=== PATIENT | female | born 1950 | race Caucasian/White ===

== ENCOUNTER 2019-03-20 14:57 | Outpatient (CLI) | payer MEDICARE, OTHER, SELFPAY ==
--- NOTE | 2019-03-20 15:40 | MM_ITS ---
WS: [id number] BILATERAL DIGITAL SCREENING MAMMOGRAPHY WITH CAD CLINICAL INFORMATION: SCREEN HISTORY: Screening mammogram. No current complaints. COMPARISON: None. TECHNIQUE: Bilateral CC and MLO views. FINDINGS: Scattered fibroglandular densities bilaterally. No suspicious focal mass, asymmetry, calcifications, or architectural distortion. No evidence of malignancy. MM/[id number] IMPRESSION: BI-RADS: 2-Benign FOLLOW UP: 1 Year Follow-up Recommend return to annual screening mammography.
== END 2019-03-20 14:58 | disposition home or self-care (01) ==
PROVIDERS: Family Provider Family Medicine; PCP Family Medicine; Visit Provider Family Medicine
DX: Z12.31 Encounter for screening mammogram for malignant neoplasm of breast (principal)
CPT/HCPCS: 77067

== ENCOUNTER 2019-04-04 07:01 | Day surgery (SDC) | payer MEDICARE, OTHER, SELFPAY ==
[2019-04-03 13:23] VITALS: BMI 25.5
--- NOTE | 2019-04-04 07:28 | P.ANES_ITS ---
Pre-Anesthetic Assessment Pre-Anesthetic Assessment: Height/Weight: Height 1.52 m Weight 59.421 kg Preop Diagnosis: nausea/vomiting Proposed Procedure: Operation Date: 04/04/19 08:30 Proposed Procedures p EGD 20224 K21.9(Not Applicable) - Erasmo Cast MD Familial anesthetic complications: PONV Was Beta Dagmar taken within 24 hours: N/A Last intake: NPO > 8 hrs Social: Social History: No alcohol and No tobacco Exam: Pre-Anes Outpt Exam: alert, oriented x 3, clear to auscultation bilaterally and regular rate & rhythm Airway: Cervical ROM: WNL MP: 2 Dentition: Caps Pulmonary: Pulmonary: None reported CV/HEM: CV/HEM: HTN : : None reported Hepatic: Hepatic: None reported GI: GI: None reported Metabolic: Metabolic: DM Musc/skel: Musc/skel: None reported Neuropsych: Neuropsych: None reported Anesthetic Plan: ASA status: II Anesthesia: MAC PFSH Anesthesia PFSH: Social History Smoking and tobacco status: never smoked Second hand smoke exposure: No Alcohol intake: never Adopted: No Caregiver/support person: Yes Lives independently: Yes Household members: spouse Housing: House Marital status: Highest education level completed: High School Graduate service: No Current occupational status: retired Current occupational exposures/hazards: No Pets and animals: No History of recent travel: No Sexually active: No Current gender identity: Female Graciela/Latter-Day: None Special graciela needs: No Agree to transfusion: No Financial difficulty paying for basics: Decline to Answer Data Anesthesia Cardiac Studies: No Data to Display
[2019-04-04 07:56] VITALS: BP 162/81; PULSE 71; RESP 18; TEMP 36.3; O2SAT 97
[2019-04-04] MEDS: sodium chloride 0.9% 1,000 ML 30 ML (08:00)
[2019-04-04 08:04] LABS: Glucose Point of Care 146 mg/dL (70-110)
--- NOTE | 2019-04-04 08:20 | PM.HPUD ---
H&P update H&P Update: DATE OF SURGERY/PROCEDURE: 04/04/19 DATE H&P PERFORMED: 03/26/19 H&P UPDATE INFORMATION: H&P completed within last 30 days and No changes to prior documentation PREOP DIAGNOSIS: Difficulty in swallow and epigastric discomfort PLANNED PROCEDURE: Operation Date: 04/04/19 08:30 Proposed Procedures p EGD 61919 K21.9(Not Applicable) - Erasmo Cast MD Full H&P Perinent History: Family History: Family History (Updated 03/26/19 @ 09:02 by Jayla Griggs RN) Mother Cancer Father Cancer Family/Other Cancer colon Denies family history of Anesthesia complication Bleeding disorder Social History: Social History Smoking and tobacco status: never smoked Second hand smoke exposure: No Alcohol intake: never Adopted: No Caregiver/support person: Yes Lives independently: Yes Household members: spouse Housing: House Marital status: Highest education level completed: High School Graduate service: No Current occupational status: retired Current occupational exposures/hazards: No Pets and animals: No History of recent travel: No Sexually active: No Current gender identity: Female Graciela/Jew: None Special graciela needs: No Agree to transfusion: No Financial difficulty paying for basics: Decline to Answer
[2019-04-04 08:33] VITALS: BP 116/62; PULSE 71; RESP 16; TEMP 36.4; O2SAT 95
[2019-04-04 08:47] VITALS: BP 122/66; PULSE 80; RESP 16; O2SAT 100
[2019-04-04 09:00] VITALS: BP 143/74; PULSE 73; RESP 16; O2SAT 97
[2019-04-05 05:54] LABS: H. Pylori / CLO Test Negative
== END 2019-04-04 09:05 | disposition home or self-care (01) ==
PROVIDERS: Family Provider Family Medicine; PCP Family Medicine; Visit Provider Surgery
PROC: 0DJ08ZZ Inspection of Upper Intestinal Tract, Via Natural or Artificial Opening Endoscopic (ICD-10-PCS; CPT 43235; principal; 2019-04-04 08:30)
DX: R13.10 Dysphagia, unspecified (principal); R10.13 Epigastric pain; K44.9 Diaphragmatic hernia without obstruction or gangrene; K29.70 Gastritis, unspecified, without bleeding; I10 Essential (primary) hypertension; E11.9 Type 2 diabetes mellitus without complications; Z79.84 Long term (current) use of oral hypoglycemic drugs; K21.9 Gastro-esophageal reflux disease without esophagitis
CPT/HCPCS: 12345; 36416; 43239; 82962; 87077; 96365; J2704; J7030

== ENCOUNTER 2019-04-18 06:55 | Outpatient (CLI) | payer MEDICARE, OTHER, SELFPAY ==
--- NOTE | 2019-04-18 07:15 | US_ITS ---
WS: [id number] RIGHT UPPER QUADRANT ULTRASOUND HISTORY: ABDOMINAL PAIN COMPARISON: None available. Liver: 15.1 cm in length. Very mild heterogeneity within the liver parenchyma. No mass or bile duct d ilatation. Gallbladder: There is a small polyp in the fundus of the gallbladder measuring 3.7 mm. No increased v ascularity. Partial septation and fold in the gallbladder. No stones. CBD: 5.3 mm Pancreas: Normal size and echogenicity. Right kidney: 8.9 cm in length. Normal echogenicity with no mass or hydronephrosis. Aorta and IVC: Unremarkable. No ascites. US/US gall bladder [id number] IMPRESSION: 1. Small benign-appearing gallbladder polyp measures 3.7 mm. 2. No cholelithiasis. 3. Mild hepatic steatosis.
== END 2019-04-18 06:56 | disposition home or self-care (01) ==
LOC: US 06:58
PROVIDERS: Family Provider Family Medicine; PCP Family Medicine; Visit Provider Surgery
DX: R10.9 Unspecified abdominal pain (principal); K76.0 Fatty (change of) liver, not elsewhere classified; K82.4 Cholesterolosis of gallbladder
CPT/HCPCS: 76705

== ENCOUNTER → 2019-11-26 09:23 | Outpatient (BNVA) | payer MEDICARE, OTHER, SELFPAY | PROVIDERS: Family Provider Family Medicine; PCP Family Medicine; Referring Provider Internal Medicine; Visit Provider Internal Medicine | DX: E11.9 Type 2 diabetes mellitus without complications (principal); E78.01 Familial hypercholesterolemia; I10 Essential (primary) hypertension | CPT/HCPCS: 99204 ==

== ENCOUNTER → 2020-03-03 08:11 | Outpatient (BNVA) | payer MEDICARE, OTHER, SELFPAY | PROVIDERS: Family Provider Family Medicine; PCP Family Medicine; Visit Provider Internal Medicine | DX: E11.9 Type 2 diabetes mellitus without complications (principal); E78.01 Familial hypercholesterolemia; I10 Essential (primary) hypertension | CPT/HCPCS: 99214 ==

== ENCOUNTER 2020-03-24 11:21 | Outpatient (CLI) | payer MEDICARE, SELFPAY ==
[2020-03-24 13:56] LABS: Estmated Average Glucose 134; Hemoglobin A1C 6.3 % (4.0-6.0)
== END 2020-03-24 11:22 | disposition home or self-care (01) ==
PROVIDERS: PCP Family Medicine; Visit Provider Internal Medicine
DX: E11.9 Type 2 diabetes mellitus without complications (principal)
CPT/HCPCS: 36415; 83036

== ENCOUNTER → 2020-04-01 08:28 | Outpatient (BNVA) | payer MEDICARE, SELFPAY | PROVIDERS: PCP Family Medicine; Visit Provider Internal Medicine | DX: E11.9 Type 2 diabetes mellitus without complications (principal); E78.01 Familial hypercholesterolemia; I10 Essential (primary) hypertension | CPT/HCPCS: 99215 ==

== ENCOUNTER 2020-04-11 09:18 | Outpatient (CLI) | payer MEDICARE, SELFPAY ==
--- NOTE | 2020-04-11 09:22 | XR_ITS ---
WS: [id number] SCREENING DEXA SCAN [employer] CLINICAL INFORMATION: post menopausal COMPARISON: None. FINDINGS: The L1-L4 bone mineral density measures 1.162 g/cm2. This corresponds to a T score score of -0.2 and Z score of 1.8. Left femoral neck bone mineral density measures 0.820 g/cm2. This corresponds to a T score of -1.5 an d Z score of 0.2. Right femoral neck bone mineral density measures 0.817 g/cm2. This corresponds to a T score -1.5of an d Z score of 0.2. Mean femoral neck bone mineral density measures 0.818 g/cm2. This corresponds to a T score of -1.5 an d Z score of 0.2. XR/XR DEXA axial skeleton* [id number] IMPRESSION: Normal bone mineralization lumbar spine. Osteopenia in the femoral necks. Patient's FRAX calculated 10 year probability for major osteoporotic fracture i s 13.7 % and osteoporotic hip fracture is 3.3%.
== END 2020-04-11 09:19 | disposition home or self-care (01) ==
LOC: RADWPI 09:18
PROVIDERS: PCP Family Medicine; Visit Provider Internal Medicine
DX: Z78.0 Asymptomatic menopausal state (principal)
CPT/HCPCS: 77080

== ENCOUNTER 2020-04-15 09:05 | Outpatient (CLI) | payer MEDICARE, SELFPAY ==
--- NOTE | 2020-04-15 09:11 | MM_ITS ---
WS: [id number] BILATERAL SCREENING DIGITAL MAMMOGRAM WITH CAD HISTORY: SCREENING COMPARISON: 03/20/2019, 02/17/2018 Bilateral CC and MLO views submitted. Computer aided detection analyzed. Breast composition: There are scattered areas of fibroglandular density. No suspicious masses, microc alcifications or architectural distortion. MM/[place] [id number] IMPRESSION: BI-RADS: 1-Negative FOLLOW UP: 1 Year Follow-up
== END 2020-04-15 09:06 | disposition home or self-care (01) ==
LOC: RADSHAW 09:07
PROVIDERS: PCP Family Medicine; Visit Provider Internal Medicine
DX: Z12.31 Encounter for screening mammogram for malignant neoplasm of breast (principal)
CPT/HCPCS: 77067

== ENCOUNTER 2020-06-24 09:21 | Outpatient (CLI) | payer MEDICARE, SELFPAY ==
[2020-06-24 10:25] LABS: Estmated Average Glucose 134; Hemoglobin A1C 6.3 % (4.0-6.0)
== END 2020-06-24 09:22 | disposition home or self-care (01) ==
PROVIDERS: PCP Family Medicine; Visit Provider Internal Medicine
DX: E11.9 Type 2 diabetes mellitus without complications (principal)
CPT/HCPCS: 83036

== ENCOUNTER → 2020-10-20 08:47 | Outpatient (BNVA) | payer MEDICARE, SELFPAY | PROVIDERS: PCP Family Medicine; Visit Provider Internal Medicine | DX: E11.9 Type 2 diabetes mellitus without complications (principal); E78.01 Familial hypercholesterolemia; M85.80 Other specified disorders of bone density and structure, unspecified site | CPT/HCPCS: 99214 ==

== ENCOUNTER → 2021-01-08 08:14 | Outpatient (BNVA) | payer MEDICARE, SELFPAY | PROVIDERS: PCP Family Medicine; Visit Provider Internal Medicine | DX: E11.9 Type 2 diabetes mellitus without complications (principal); E78.01 Familial hypercholesterolemia; M85.80 Other specified disorders of bone density and structure, unspecified site; Z79.84 Long term (current) use of oral hypoglycemic drugs | CPT/HCPCS: 99214 ==

== ENCOUNTER 2021-06-12 07:37 | Outpatient (CLI) | payer MEDICARE, SELFPAY ==
--- NOTE | 2021-06-12 07:50 | MM_ITS ---
WS: [id number] BILATERAL 3D TOMOSYNTHESIS DIGITAL SCREENING MAMMOGRAPHY WITH CAD CLINICAL INFORMATION: SCREENING HISTORY: Screening mammogram. No current complaints. COMPARISON: April 15, 2020 TECHNIQUE: Bilateral CC and MLO views. FINDINGS: Scattered fibroglandular densities bilaterally. A few incidental punctate calcifications. No suspicio us focal mass, asymmetry, calcifications, or architectural distortion. No evidence of malignancy. MM/[place] [id number] IMPRESSION: BI-RADS: 2-Benign FOLLOW UP: 1 Year Follow-up Recommend return to annual screening mammography.
== END 2021-06-12 07:38 | disposition home or self-care (01) ==
LOC: RADSHAW 07:39
PROVIDERS: PCP Family Medicine; Visit Provider Family Medicine
DX: Z12.31 Encounter for screening mammogram for malignant neoplasm of breast (principal)
CPT/HCPCS: 77063; 77067

== ENCOUNTER → 2021-06-29 08:02 | Outpatient (BNVA) | payer MEDICARE, SELFPAY | PROVIDERS: PCP Family Medicine; Visit Provider Internal Medicine | DX: E11.9 Type 2 diabetes mellitus without complications (principal); E78.2 Mixed hyperlipidemia; M85.80 Other specified disorders of bone density and structure, unspecified site; Z79.84 Long term (current) use of oral hypoglycemic drugs | CPT/HCPCS: 99214 ==

== ENCOUNTER → 2021-10-01 08:25 | Outpatient (BNVA) | payer MEDICARE, SELFPAY | PROVIDERS: PCP Family Medicine; Visit Provider Internal Medicine | DX: E11.22 Type 2 diabetes mellitus with diabetic chronic kidney disease (principal); N18.30 Chronic kidney disease, stage 3 unspecified; Z79.84 Long term (current) use of oral hypoglycemic drugs; E78.5 Hyperlipidemia, unspecified; E78.2 Mixed hyperlipidemia; M85.80 Other specified disorders of bone density and structure, unspecified site | CPT/HCPCS: 99214 ==

== ENCOUNTER → 2022-02-25 07:56 | Outpatient (BNVA) | payer MEDICARE, SELFPAY | PROVIDERS: PCP Family Medicine; Visit Provider Internal Medicine | DX: E11.9 Type 2 diabetes mellitus without complications (principal); E78.2 Mixed hyperlipidemia; M85.80 Other specified disorders of bone density and structure, unspecified site; Z79.84 Long term (current) use of oral hypoglycemic drugs | CPT/HCPCS: 99214 ==

== ENCOUNTER 2022-06-15 08:36 | Outpatient (CLI) | payer MEDICARE, SELFPAY ==
--- NOTE | 2022-06-15 08:45 | MM_ITS ---
WS: [id number] BILATERAL 3D TOMOSYNTHESIS DIGITAL SCREENING MAMMOGRAPHY WITH CAD CLINICAL INFORMATION: SCREENING HISTORY: Screening mammogram. No current complaints. COMPARISON: 2021 and 2020 TECHNIQUE: Bilateral CC and MLO views. FINDINGS: Scattered fibroglandular densities bilaterally. A few incidental punctate calcifications. No suspicio us focal mass, asymmetry, calcifications, or architectural distortion. No evidence of malignancy. MM/[place] [id number] IMPRESSION: BI-RADS: 2-Benign FOLLOW UP: 1 Year Follow-up Recommend return to annual screening mammography.
== END 2022-06-15 08:37 | disposition home or self-care (01) ==
LOC: RAD 08:37
PROVIDERS: PCP Family Medicine; Visit Provider Family Medicine
DX: Z12.31 Encounter for screening mammogram for malignant neoplasm of breast (principal)
CPT/HCPCS: 77063; 77067

== ENCOUNTER → 2022-08-26 10:27 | Outpatient (BNVA) | payer MEDICARE, SELFPAY | PROVIDERS: PCP Family Medicine; Visit Provider Internal Medicine | DX: E11.9 Type 2 diabetes mellitus without complications (principal); E78.2 Mixed hyperlipidemia; M85.80 Other specified disorders of bone density and structure, unspecified site; Z79.84 Long term (current) use of oral hypoglycemic drugs | CPT/HCPCS: 99214 ==

== ENCOUNTER 2022-10-20 12:56 | Outpatient (CLI) | payer MEDICARE, SELFPAY ==
--- NOTE | 2022-10-20 13:07 | XR_ITS ---
WS: [id number] SCREENING DEXA SCAN [employer] CLINICAL INFORMATION: OSTEOPOROSIS SCREENING COMPARISON: 04/11/2020 FINDINGS: The L1-L4 bone mineral density measures 1.221 g/cm2. This corresponds to a T score score of 0.3 and Z score of 2.4. Left femoral neck bone mineral density measures 0.807 g/cm2. This corresponds to a T score of -1.6 an d Z score of 0.3. Right femoral neck bone mineral density measures 0.819 g/cm2. This corresponds to a T score -1.5of an d Z score of 0.4. Mean femoral neck bone mineral density measures 0.813 g/cm2. This corresponds to a T score of -1.5 an d Z score of 0.3. IMPRESSION: Normal bone mineralization lumbar spine. Osteopenia femoral necks. Patient's FRAX calculated 10 year probability for major osteoporotic fracture is 24.8% and osteoporot ic hip fracture is 7.5%. Bone mineral density in lumbar spine increased 5.1% and decrease -0.6% in the femoral necks since
== END 2022-10-20 12:57 | disposition home or self-care (01) ==
PROVIDERS: PCP Family Medicine; Visit Provider Family Medicine
DX: M81.0 Age-related osteoporosis without current pathological fracture (principal)
CPT/HCPCS: 77080

== ENCOUNTER → 2023-01-03 07:46 | Outpatient (BNVA) | payer MEDICARE, SELFPAY | PROVIDERS: PCP Family Medicine; Visit Provider Internal Medicine | DX: E11.9 Type 2 diabetes mellitus without complications (principal); E78.2 Mixed hyperlipidemia; M85.80 Other specified disorders of bone density and structure, unspecified site; Z79.84 Long term (current) use of oral hypoglycemic drugs | CPT/HCPCS: 99214 ==

== ENCOUNTER → 2023-04-06 08:00 | Outpatient (BNVA) | payer MEDICARE, SELFPAY | PROVIDERS: PCP Family Medicine; Visit Provider Internal Medicine | DX: E78.2 Mixed hyperlipidemia (principal); E11.9 Type 2 diabetes mellitus without complications; M85.80 Other specified disorders of bone density and structure, unspecified site; Z79.84 Long term (current) use of oral hypoglycemic drugs | CPT/HCPCS: 99214 ==

== ENCOUNTER 2023-06-20 07:38 | Outpatient (CLI) | payer MEDICARE, SELFPAY ==
--- NOTE | 2023-06-20 07:53 | MM_ITS ---
WS: [id number] VIEWS: MLO and CC views both breasts. 3D digital tomosynthesis is also included in this exam. Comparison made with prior exam of 05/17/2011, 05/23/2012, 12/26/2014, 02/17/2018, 03/20/2019, 04/15/2020, 06/12/2021, 06/15/2022.. Findings: There was no sign of mass, architectural distortion or suspicious calcification in either breast. The breasts are almost entirely fatty Impression: MM/[place] [id number] BI-RADS: 1-Negative FOLLOW-UP: 1 Year Follow-up This mammogram was also analyzed by the Computer Aided Detection System R2 Imag e Fiscal Specialist.
== END 2023-06-20 07:39 | disposition home or self-care (01) ==
LOC: RAD 07:39
PROVIDERS: PCP Family Medicine; Visit Provider Family Medicine
DX: Z12.31 Encounter for screening mammogram for malignant neoplasm of breast (principal)
CPT/HCPCS: 77063; 77067

== ENCOUNTER → 2023-10-05 07:52 | Outpatient (BNVA) | payer MEDICARE, SELFPAY | PROVIDERS: PCP Family Medicine; Visit Provider Internal Medicine | DX: E11.9 Type 2 diabetes mellitus without complications (principal); E78.2 Mixed hyperlipidemia; M85.80 Other specified disorders of bone density and structure, unspecified site; Z79.84 Long term (current) use of oral hypoglycemic drugs; Z79.85 Long-term (current) use of injectable non-insulin antidiabetic drugs | CPT/HCPCS: 99214 ==

== ENCOUNTER → 2024-04-04 08:27 | Outpatient (BNVA) | payer MEDICARE, SELFPAY | PROVIDERS: PCP Family Medicine; Visit Provider Internal Medicine | DX: E78.2 Mixed hyperlipidemia (principal); E11.9 Type 2 diabetes mellitus without complications; M85.80 Other specified disorders of bone density and structure, unspecified site | CPT/HCPCS: 99214 ==

== ENCOUNTER 2024-06-19 16:01 | Inpatient (IN) | payer MEDICARE, SELFPAY ==
[2024-06-19] VITALS (29 sets, daily range): BP systolic 153–201; BP diastolic 77–102; PULSE 81–108; RESP 13–31; TEMP 36.6–36.9; O2SAT 84–99; BMI 25.0
--- NOTE | 2024-06-19 16:04 | ECG_ITS ---
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 Measurements Intervals [place] Rate: 113 P: -6 TX: 160 QRS: -36 QRSD: 166 T: 104 QT: 380 QTc: 523 Interpretive Statements SINUS TACHYCARDIA LEFT AXIS DEVIATION [QRS AXIS < -30] LEFT BUNDLE BRANCH BLOCK [120+ ms QRS DURATION, 80+ ms Q/S IN V1/V2, 85+ ms R IN I/aVL/V5/V6] No previous ECG available for comparison Electronically Signed On 06-20-2024 21:31:40 CDT by Gail Machado M.D. [id number]
--- NOTE | 2024-06-19 16:04 | XRR_ITS ---
PROCEDURE INFORMATION: Exam: XR Chest Exam date and time: 06/19/2024 4:14 PM Age: 74 years old Clinical indication: Pain; Chest pressure; Additional info: Cp TECHNIQUE: Imaging protocol: Radiologic exam of the chest. Views: 1 view. COMPARISON: CR XR shoulder LT min 2V* [id number] 07/11/2017 10:21 AM FINDINGS: Lungs: Both lungs demonstrate diffuse pulmonary edema.Fco B lines are noted in both lung bases. No dense consolidation noted. Pleural spaces: Unremarkable. No pleural effusion. No pneumothorax. Heart/Mediastinum: Borderline cardiomegaly noted. Bones/joints: Unremarkable. XR/XR chest 1V portable [id number] IMPRESSION: Mild CHF
--- NOTE | 2024-06-19 16:12 | XACV_ITS ---
Exam Room: [facility] Ht: 152 cm Wt: 58 kg BSA: 1.58 m2 Gender: Female : 1950 Exam Priority: Routine Procedure(s): Procedure Description: Diagnostic procedure Procedure Description: PCI procedure Procedure Description: Coronary IVUS Procedure Description: Drug Eluting Coronary Stent Procedure Description: PTCA Procedure Description: Miscellaneous Procedure Description: ACT Procedure Description: Coronary Angiography Diagnostic Cath Status: Emergency Diagnostic Findings * INDICATION: Patient has presented with chest pain, new onset left bundle branch block and heart failure symptoms. * Left Main has no significant disease. * Circumflex has no significant disease. * Right Coronary Artery has mild luminal irregularities. * Proximal Left Anterior Descending: significant 80% stenosis, MERCEDEZ: 3 flow. Distal LAD has 40-50% stenosis. * 1st Diagonal: moderate 60-70% stenosis, MERCEDEZ: 3 flow. * Coronary angiography shows right dominance. PCI Status: Emergency PCI Indication: NSTE - ACS Interventional Findings * Procedure detail: We engaged left main artery with XB 3.0 guide catheter. IV heparin was administered to maintain anticoagulation. Run-through wire was used to cross the stenosis and was put in distal vessel. IVUS was performed to size the stent. We performed predilation with 3.5 x 12 mm semicompliant balloon. At the same time second run-through wire was kept in the diagonal artery to protect it. This was followed by placement of 3.5 x 18 mm resolute Darrick drug-eluting stent from proximal to mid LAD. We postdilated the stent with 3.75x15 mm NC balloon. Flow to the diagonal artery was lost after post dilation. A pilot submersible wire was advanced into diagonal artery through the stent struts of LAD. This vessel was dilated with 2.0 x 12 mm and 2.5 x 15 mm semicompliant balloons. Flow to diagonal artery was restored. At this time final angiogram was performed showing excellent stent expansion, MERCEDEZ 3 flow and no residual stenosis. Guidewire and guide catheter were removed. Patient left micro lab analyst in a stable condition. . * Proximal Left Anterior Descendin% stenosis treated with a AB TREK 3.50X12 RX BALLOON, MDT R DARRICK 3.5X18 JUDE, and MDT NC EUPHORA RX 3.23R38CU BALLOON. 0% residual stenosis, MERCEDEZ: 3 flow. * 1st Diagonal: 70% stenosis treated with a AB MINI TREK 2.00X12 RX BALLOON, and AB TREK 2.50X15 RX BALLOON. 0% residual stenosis, MERCEDEZ: 3 flow. Conclusions 1. Severe proximal to mid LAD stenosis s/p successful revascularization with 1 stent. Balloon angioplasty was performed for the diagonal artery. 2. Proximal Left Anterior Descending was treated with a Balloon, Drug Eluting Stent, and Balloon. 3. 1st Diagonal was treated with a Balloon, and Balloon. Recommendations * Dual antiplatelet therapy with aspirin and plavix. * High intensity statin therapy. * Outpatient cardiology follow up in 2 weeks. Interventional RX Recommendation: PCI w/o planned CABG Diagnostic RX Recommendation: PCI w/o planned CABG Anticoagulation: Heparin LV EDP: 45 mmHg Pressures Phase:Rest AO : 142 / 71 ( 97 ) @ 5:49:00 PM 143 / 92 ( 115 ) @ 6:22:00 PM 177 / 91 ( 128 ) @ 6:41:00 PM 180 / 92 ( 131 ) @ 6:41:00 PM LV : 182 / 19 / 45 @ 6:40:00 PM 178 / 17 / 44 @ 6:41:00 PM Valves Phase:DefaultPhase AV : 0.0 @ 5:51:44 PM AV Mean Gradient: 0.0 @ 5:51:44 PM Clinical Evaluation EBL: 5mL-10mL Procedural Details Pre-Procedure Time Out. Identified patient by full name and date of as verbalized by the patient/guarantor. Does the consent match the physician's order: N/A Emergent. Accurate & Complete Informed Consent: N/A Emergent. Inpatient/Outpatient History & Physical on Chart: N/A Emergent. If H&P is completed, is and addenduem needed: N/A Emergent; If yes, is the addendum complete: N/A Emergent. Visualize and Verify Site with Patient/Guarantor: N/A. Relevant Radiology Images available: N/A. The risks, benefits, and alternatives of sedation and/or procedure were discussed by physician. The patient agrees to continue. Procedure started. [facility] Clinical Fraility Score: 4: Vulnerable. [employer] Building Indications: ACS <= 24 hours. Chest Pain Symptom Assessment: Typical Angina Symptoms. Correct patient, site and procedure confirmed by cath team. Current diagnosis: STEMI. PERRLA. 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 Lungs clear x 5 lobes. IV Site on Arrival: 20 gauge in the right anticubital. IV Site on Arrival: 18 gauge in the left anticubital. IV Fluids: 0.9% NaCl at KVO. 0 mL infused prior to micro lab analyst. Pre Procedural Pulses: right radial was 3+. Pt arrived on Bipap at 50% 02. Admit Source: Emergency department. right radial was prepped with chloroprep then draped in the usual sterile fashion. right groin was prepped with chloroprep then draped in the usual sterile fashion. Physician notified. Baseline sample Acquired. HR: 82 BPM. Physician arrived. Physician scrubbed in. Immediate Pre-Procedure Time Out. Correct Patient: Yes; Correct Procedure: Yes; Correct Site: Yes; Correct Patient Position: Yes; Correct Supplies: Yes; Dried Flammable Prep: Yes; Blood Products Available: Yes;. Lidocaine 1% infiltrated to the right radial. Arterial access obtained. A 5 cypriot TIG catheter in over wire. Multiple views taken of left coronary artery. Catheter redirected to the RCA. Multiple views taken of right coronary artery. Catheter removed over the exchange wire. 6 cypriot XB 3 guide catheter was inserted over the wire. Add inventory: Co-pilot submersible, endoflator. Runthrough guidewire was advanced through the guide catheter to lesion in the diaganol. Second runthrough guidewire was advanced through the guide catheter to lesion in the prox LAD. Balloon inserted to lesion in the prox LAD. Inflation number : 1 A AB TREK 3.50X12 RX BALLOON was prepped and advanced across the Prox LAD , then inflated to 8 ALEX for 0:13 seconds. Inflation number: 2 The AB TREK 3.50X12 RX BALLOON was reinflated across the Prox LAD, to 8 ALEX for 0:24 seconds. Balloon out. IVUS catheter in over runthrough wire to lesion in prox LAD. IVUS catheter OTW. IVUS run performed of prox LAD. Stent inserted to lesion in the prox LAD. Inflation Number : 3 A NIKITA Mendoza DARRICK 3.5X18 JUDE -Lot Number# [id number] EXP 11-21-2025 was prepped and advanced across the Prox LAD. The stent was deployed at 12 ALEX for 0:17 seconds. Stent balloon out over wire. Runthrough wire in LAD repositioned to diaganol. Unable to advance second runthrough to diagonal. Runthrough wire advanced back down the LAD. IVUS catheter in over runthrough wire seated in LAD. IVUS run performed of prox LAD stent. Diagonal runthrough wire out. IVUS catheter out OTW. Balloon inserted to lesion in the prox LAD. Inflation number : 4 A NIKITA CHERRY EUPHORA RX [id number] BALLOON was prepped and advanced across the Prox LAD , then inflated to 12 ALEX for 0:13 seconds. Balloon out. Runthrough guidewire was advanced through the guide catheter to lesion in the diaganol. Unable to cross lesion in diagonal, guidewire advanced down LAD. Melter Assistant 50 guidewire was advanced through the guide catheter to lesion in the diaganol. Balloon inserted to lesion in the diaganol. Inflation number : 1 A AB MINI TREK 2.00X12 RX BALLOON was prepped and advanced across the 1st Diag , then inflated to 6 ALEX for 0:13 seconds. Inflation number: 2 The AB MINI TREK 2.00X12 RX BALLOON was reinflated across the 1st Diag, to 8 ALEX for 0:09 seconds. Inflation number: 3 The AB MINI TREK 2.00X12 RX BALLOON was reinflated across the 1st Diag, to 6 ALEX for 0:10 seconds. Inflation number: 4 The AB MINI TREK 2.00X12 RX BALLOON was reinflated across the 1st Diag, to 8 ALEX for 0:09 seconds. Inflation number: 5 The AB MINI TREK 2.00X12 RX BALLOON was reinflated across the 1st Diag, to 6 ALEX for 0:07 seconds. Balloon out. Runthrough wire out. ACT drawn. Results 294 seconds. Therapeutic limits - pre-heparin administration 90-150 seconds and monitoring heparin during a vascular procedure >250 seconds. Balloon inserted to lesion in the diaganol. Inflation number : 6 A AB TREK 2.50X15 RX BALLOON was prepped and advanced across the 1st Diag , then inflated to 8 ALEX for 0:10 seconds. Inflation number: 7 The AB TREK 2.50X15 RX BALLOON was reinflated across the 1st Diag, to 8 ALEX for 0:10 seconds. Balloon out. Melter Assistant 50 wire out. Guide catheter out over exchange wire. A 5 cypriot TIG catheter in over wire. EDP Sample taken: LV 182/19,45; HR: 87 BPM; SpO2: 96%. Pullback taken: LV 178/17,44; AO 177/91(128); Mean: 0mmHg, Peak to Peak: 0mmHg, SEP: 7sec/min; HR: 86 BPM; SpO2: 94%. Catheter removed over the exchange wire. LV EDP: 45. Patient's family updated. Physician scrubbed out. Post Procedure: Pulses reassessed and unchanged. PERRLA. 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 No VTE prophylaxis required. Post-op diagnosis: Severe prox LAD stenosis, status post PCI placement of 1 JUDE. High risk Nstemi. PCI Indication: NSTE. Medication's Wasted: Lidocaine 1% = 18 mL. Medication's Wasted: Nitro = 49.8 mg. Medication's Wasted: Other = Versed 1 mg. Medication's Wasted: Heparin = 4000 unit. Total IV fluids: 50 mL. A TR Band was successful obtaining hemostatsis at the Right Radial artery insertion site. Complications: None. Estimated blood loss: 5mL-10mL. Responsiveness - Normal response to verbal stimuli; alert and oriented, PERRLA. A 16Fr judge catheter was inserted without resistance maintaining sterile technique. Bag to gravity with clear urine returning. Airway - Unaffected, no intervention required; spontaneous ventilation. Circulation: W/N/L, pulses unchanged. Nausea/Vomiting: No. Procedure completed. Patient transferred by bed to ICU. Vital chart was stopped. Access Site Site: Right Radial artery Sheath Size: 6 Fr Hemostasis Method: TR Band Hemostasis Success: Successful Procedure Medications Start: 4:44 PM Stop: 4:44 PM Medication: Versed Amount: 1 mg Route: I.V. Start: 4:45 PM Stop: 4:45 PM Medication: Fentanyl Amount: 25 mcg Route: I.V. Start: 4:54 PM Stop: 4:54 PM Medication: Heparin Amount: 2000 units Route: I.V. Start: 4:58 PM Stop: 4:58 PM Medication: Fentanyl Amount: 25 mcg Route: I.V. Start: 5:17 PM Stop: 5:17 PM Medication: Versed Amount: 1 mg Route: I.V. Start: 5:17 PM Stop: 5:17 PM Medication: Fentanyl Amount: 25 mcg Route: I.V. Start: 5:28 PM Stop: 5:28 PM Medication: Fentanyl Amount: 25 mcg Route: I.V. Start: 5:29 PM Stop: 5:29 PM Medication: Versed Amount: 1 mg Route: I.V. I, the attending physician, have reviewed and verified all procedure medications. Yes, all medications given per verbal order History/Risk Factors Hypertension: No Dyslipidemia: No Peripheral Arterial Disease (PAD): No Myocardial Infarction (W[place]): No Obesity: No Prior Interventions PCI: No CABG: No Valve Surgery: No Report Signatures Finalized by Remi Abel MD on 07/02/2024 09:25 AM
--- NOTE | 2024-06-19 16:14 | W.ED.CHESTPA ---
HPI - Chest Pain General: Chief Complaint: Chest Pain Stated Complaint: STEMI Time Seen by Provider: 06/19/24 16:04 Source: patient and EMS Mode of arrival: EMS Limitations: no limitations History of Present Illness: 74-year-old female who is brought in by EMS as a STEMI alert states started having chest pain last night states it is a pressure type pain that radiated to her left arm is been having shortness of breath as well she went to [facility] and then called EMS from there. States the pain originally was a 9 out of 10 pressure pain it has been improved with nitro is now a 2 out of 10 states she feels like her lungs are filling up and making her short of breath as well she does have a history of high cholesterol diabetes and hypertension denies any history of heart disease is a non-smoker. Associated symptoms: Reports dyspnea; Deny abdominal pain, fever(s), nausea or vomiting Related Data Home Medications ?Medication ?Instructions ?Recorded ?Confirmed cholecalciferol (vitamin D3) 10 10 mcg PO DAILY 10/20/20 06/19/24 mcg (400 unit) capsule metformin 500 mg tablet 500 mg PO BID 01/05/24 06/19/24 fenofibrate nanocrystallized 145 145 mg PO DAILY 06/19/24 06/19/24 mg tablet fluoxetine 20 mg capsule 20 mg PO DAILY 06/19/24 06/19/24 fluticasone propionate 50 2 spray intranasal DAILY 06/19/24 06/19/24 mcg/actuation nasal spray,suspension lisinopril 40 mg tablet 40 mg PO QPM 06/19/24 06/19/24 nifedipine 60 mg tablet,extended 120 mg PO DAILY 06/19/24 06/19/24 release 24 hr Previous Rx's ?Medication ?Instructions ?Recorded pantoprazole 40 mg tablet,delayed See Rx Instructions .Route 01/31/20 release .COMPLEX #30 tabs blood glucose control, low (True #1 ea 03/12/20 Metrix Level 1 solution) blood-glucose meter (True Metrix #1 ea 03/12/20 Glucose Meter) blood sugar diagnostic (True #400 strips 09/27/22 Metrix Glucose Test Strip) lancets 28 gauge (TRUEplus Lancets) #400 ea 09/27/22 glimepiride 1 mg tablet See Rx Instructions .Route 12/18/23 .COMPLEX #90 tabs evolocumab 140 mg/mL subcutaneous See Rx Instructions .Route 04/04/24 pen injector (Repatha SureClick) .COMPLEX #6 mL liraglutide 0.6 mg/0.1 mL (18 mg/3 See Rx Instructions .Route 04/04/24 mL) subcutaneous pen injector .COMPLEX #6 mL (Victoza 3-Jared) Allergies Allergy/AdvReac Type Severity Reaction Status Date / Time No Known Allergies Allergy Verified 04/03/24 15:01 Review of Systems Const: Denies: fever(s), chills, body aches or change in appetite ENMT: Denies: throat pain or dental pain Card: Reports: chest pain Resp: Reports: dyspnea GI: Denies: abdominal pain, nausea, vomiting or diarrhea Musc: Denies: neck pain or back pain Skin/Breast: Denies: rash Neuro: Denies: headache(s) PFSH ED PFSH: Medical History Diarrhea Diabetes Hypertension Surgical History History of tonsillectomy History of back surgery History of colonoscopy (~2016) normal results History of esophagogastroduodenoscopy (EGD) (~04/2019) Nausea and vomiting in adult EGD showed gastritis and that will be treated by PPI therapy and diet modifications, pending ultrasound of the gallbladder. Family History Mother Cancer Father Cancer Family/Other Cancer colon Denies family history of Anesthesia complication Bleeding disorder Social History Smoking and tobacco/nicotine status: never used tobacco/nicotine Second hand smoke exposure: No Alcohol intake: never Substance/Drug Use: never Adopted: No Caregiver/support person: Yes Lives independently: Yes Household members: spouse Housing: House Marital status: Highest education level completed: High School Graduate service: No Current occupational status: retired Current occupational exposures/hazards: No Pets and animals: No Sexually active: No Do you think of yourself as: Straight/Heterosexual Current gender identity: Female Graciela/Episcopal: None Special graciela needs: No Agree to transfusion: No Physical Exam Const: COMMON NORMALS: no acute distress, patient oriented x3 and healthy appearing HENMT: COMMON NORMALS: normocephalic and atraumatic HEAD & SCALP: normocephalic and atraumatic Eye: COMMON NORMALS: conjunctivae normal CONJUNCTIVA: Yes conjunctivae normal Neck/C-Spine: COMMON NORMALS: full ROM and supple Chest: COMMONS NORMALS: normal inspection of the chest Resp: COMMON NORMALS: No retractions and No use of accessory muscles AUSCULTATION: rales Cardio: COMMON NORMALS: regular rhythm and No murmurs present (Cardio) RATE: tachycardic RHYTHM: regular rhythm GI: COMMON NORMALS: Normal to inspection, nondistended, normoactive bowel sounds present, Soft to palpation, non-tender and no masses PALPATION: Yes Soft to palpation Extremity: COMMON NORMALS: normal to inspection and full ROM Neuro: COMMON NORMALS: patient oriented x3, moves all extremities and no focal motor deficits Psych: COMMON NORMALS: mental status grossly normal, Normal thought process present and cooperative THOUGHT PROCESS: Normal thought process present Skin: COMMON NORMALS: no rashes or lesions noted and no wounds GENERAL SKIN EXAM: no rashes or lesions noted Course Vital Signs: Vital signs: Vital Signs Temperature 97.8 F 06/19/24 16:04 Pulse Rate 108 H 06/19/24 16:04 Respiratory Rate 24 H 06/19/24 16:04 Blood Pressure 201/102 06/19/24 16:04 Pulse Oximetry 84 L 06/19/24 16:04 Oxygen Delivery Me thod Room Air 06/19/24 16:04 MDM - Chest Pain Medical Decision Making Patient presents here chest pain has new onset left bundle branch also has pulm edema on her chest x-ray patient was seen by cardiology in the ER will take to the [facility] for possible STEMI Medical Records I reviewed the patient's medical records. Lab Data I reviewed the patient's lab results. 06/19/24 16:10 06/19/24 16:10 Laboratory Results PT 12.60 SECONDS (12.1-14.9) 06/19/24 16:10 INR 0.88 (0.8-1.2) 06/19/24 16:10 All radiology interpretation(s) finalized by discharge EKG Data EKG 1: I personally reviewed and interpreted this EKG as follows: EKG interpretation date: 06/19/24 EKG interpretation time: 16:00 Interpretation: sinus tach hr 113 lbbb qrs [id number] Discharge Plan Discharge Patient Disposition: Admitted As Inpatient Admit Provider: Remi Abel Clinical Impression: ST elevation myocardial infarction (STEMI), Pulmonary edema Condition: Stable Coding Level of Care Code ED Research Mechanic for Eleanor Metz
[2024-06-19] MEDS: clopidogrel 300 mg Tablet 600 MG PO (16:17)
[2024-06-19 16:18] LABS: Basophils # 0.1 10^3/uL (0.0-0.1); Basophils % 0.8 %; Eosinophils # 0.3 10^3/uL (0.0-0.8); Eosinophils % 1.7 %; Hematocrit 34.4 % (36-47); Lymphocytes % 44.2 %; Mean Corpuscular HGB Conc 30.5 g/dL (30-55); Mean Corpuscular Hemoglobin 25.8 pg (27-33); Mean Corpuscular Volume 84.5 fl (85-98); Mean Platelet Volume 13.2 fL (7.4-10.4); Monocytes # 0.8 10^3/uL (0.2-0.9); Monocytes % 5.3 %; Neutrophils # 7.55 10^3/uL (1.8-7.7); Neutrophils % 47.5 %; Nucleated Red Blood Cells % 0 %; Platelet Count 410 10^3/cmm (157-399); Red Blood Count 4.07 10^6/uL (3.85-5.65); Red Cell Distribution Width 14.5 % (12.1-15.1); White Blood Count 15.88 10^3/uL (3.29-11.43)
[2024-06-19] MEDS: labetalol 5 mg/mL SDV 20mL 10 MG IVP (16:18)
[2024-06-19] MEDS: heparin 5,000 unit/mL INJ 1 mL 4000 UNIT IVP (16:22)
[2024-06-19 16:30] LABS: INR 0.88 (0.8-1.2)
[2024-06-19] MEDS: FUROsemide 10 mg/mL SDV 10mL 60 MG IVP (16:34)
--- NOTE | 2024-06-19 16:39 | P.HP_ITS ---
<Statement entered by Remi Abel M.D - 06/20/24 22:44> Patient was evaluated and cared for in conjunction with an advanced practice practitioner. I personally examined the patient and reviewed the chart and all pertinent data including imaging, telemetry, and laboratory results. I discussed the patient in detail with the advanced practice practitioner. Please see their note for complete H&P, results and agreed upon plan of care for the patient. Patient has presented with chest pain, new onset left bundle branch block and heart failure symptoms. GENERAL: Patient is alert and oriented HEART: Regular S1 and S2 LUNGS: Has crackles bilaterally EXTREMITIES: Lower extremities with no edema 1) Acute coronary syndrome 2) Acute congestive heart failure 3) New onset left bundle branch block 4) Diabetes Patient has presented with unstable angina/high risk NSTEMI features with acute heart failure. We will proceed with emergent cardiac catheterization with possible PCI. Risks and benefits of the procedure discussed in detail. IV lasix given. Starting on BiPAP Loaded with plavix and aspirin Order echocardiogram We will consult medicine team to help with management of medical issues Providers/Chief Complaint 2 Admitting Physician: Dr. Abel Primary Care Provider: Salvador Foreman MD Chief Complaint: STEMI History of Present Illness Mariela Bautista is a 74 year old female who came to the emergency room via EMS as a STEMI alert. She states she started having chest pain last night pressure at the left side of her chest that radiated to her left arm. She had been having shortness of breath on exertion as well. She was in a clinic and EMS was called from there. She states she got nitro and her chest pain improved but she still having some chest pressure. She does have a history of hypercholesterolemia, diabetes, and hypertension. Denies history of heart disease. She is a non-smoker. On exam she is dyspneic with oxygen saturation of 87 percent on nasal cannula. EKG showed new onset left bundle branch block. Blood pressure is fairly elevated at 201/102. Labs are pending at this time. Review of Systems 2 Narrative: Consitutional: denies fever, chills, body aches Card: reports chest pressure at the center of her chest at rest slightly relieved by nitro, reports shortness of breath, reports orthopnea Resp: Reports shortness of breath Musc: Denies extremity pain, denies limited range of motion or recent injury Skin: Denies rash, lesions, or wounds, denies changes to skin color Neuro: Denies nubmness in extremities, h/a, s/s of stroke Medications/Allergies Home Medications ?Medication ?Instructions ?Recorded ?Confirmed ?Last Taken ?Type pantoprazole 40 mg tablet,delayed See Rx Instructions .Route 01/31/20 06/19/24 Unknown Rx release .COMPLEX #30 tabs blood glucose control, low (True #1 ea 03/12/20 Unknown Rx Metrix Level 1 solution) blood-glucose meter (True Metrix #1 ea 03/12/20 Unknown Rx Glucose Meter) cholecalciferol (vitamin D3) 10 10 mcg PO DAILY 06/19/24 Unknown History mcg (400 unit) capsule blood sugar diagnostic (True #400 strips 09/27/2206/05 Unknown Rx Metrix Glucose Test Strip) lancets 28 gauge (TRUEplus Lancets) #400 ea 09/27/22 0 06/19/24 Unknown Rx glimepiride 1 mg tablet See Rx Instructions .Route 1 06/19/24 Unknown Rx .COMPLEX #90 tabs metformin 500 mg tablet 500 mg PO BID 01/05/2406/19 Unknown History evolocumab 140 mg/mL subcutaneous See Rx Instructions .Route 04/04/24 06/19/24 Unknown Rx pen injector (Padma Mistryick) .COMPLEX #6 mL liraglutide 0.6 mg/0.1 mL (18 mg/3 See Rx Instructions .Route 04/04/24 06/19/24 Unknown Rx mL) subcutaneous pen injector .COMPLEX #6 mL (Victoza 3-Jared) fenofibrate nanocrystallized 145 145 mg PO DAILY 06/1906/19/24 Unknown History mg tablet fluoxetine 20 mg capsule 20 mg PO DAILY 06/19/2406/05 Unknown History fluticasone propionate 50 2 spray intranasal DAILY 06/19/24 Unknown History mcg/actuation nasal spray,suspension lisinopril 40 mg tablet 40 mg PO QPM 06/19/24 Unknown History nifedipine 60 mg tablet,extended 120 mg PO DAILY 06/1906/19/24 Unknown History release 24 hr Allergies Allergy/AdvReac Type Severity Reaction Status Date / Time No Known Allergies Allergy Verified 04/03/24 15:01 PFSH Acute 2 PFSH: Medical History Diarrhea Diabetes Hypertension Surgical History History of tonsillectomy History of back surgery History of colonoscopy (~2016) normal results History of esophagogastroduodenoscopy (EGD) (~04/2019) Nausea and vomiting in adult EGD showed gastritis and that will be treated by PPI therapy and diet modifications, pending ultrasound of the gallbladder. Family History Mother Cancer Father Cancer Family/Other Cancer colon Denies family history of Anesthesia complication Bleeding disorder Social History Smoking and tobacco/nicotine status: never used tobacco/nicotine Second hand smoke exposure: No Alcohol intake: never Substance/Drug Use: never Adopted: No Caregiver/support person: Yes Lives independently: Yes Household members: spouse Housing: House Marital status: Highest education level completed: High School Graduate service: No Current occupational status: retired Current occupational exposures/hazards: No Pets and animals: No Sexually active: No Do you think of yourself as: Straight/Heterosexual Current gender identity: Female Graciela/Episcopal: None Special graciela needs: No Agree to transfusion: No Vitals/I&O/Wt Last Vital Signs Temp 97.8 F 06/19/24 16:04 Pulse 108 H 06/19/24 16:04 Resp 24 H 06/19/24 16:04 BP 201/102 06/19/24 16:04 Pulse Ox 84 L 06/19/24 16:04 O2 Del Method Room Air 06/19/24 16:04 Weight last 48 hrs Weight 128 lb Physical Exam 2 Narrative: General: Slight respiratory distress noted, slightly dyspnic Muskuloskeletal: Full ROM Respiratory: bilateral lower lobes course crackles Cardio: No JVD, tachycardic, regular rhythm, S1 S2 normal, no murmurs, peripheral pulses 2+ radial palpated on the right GI: Normal to inspection, nondistended Extremities: Full ROM, normal, normal capillary refill, no cyanosis, trace edema bilaterally Neuro: Alert and oriented x4, no focal motor deficits Psych: Affect normal Skin: No rashes or lesions noted, no wounds Data 06/20/24 02:22 06/20/24 16:54 A&P Assessment and plan (1) Chest pain: (2) New onset left bundle branch block (LBBB): (3) Congestive heart failure: (4) Hypertension: Qualifiers: Hypertension type: essential hypertension Qualified Code(s): I10 - Essential (primary) hypertension (5) Hyperlipidemia: Qualifiers: Hyperlipidemia type: mixed hyperlipidemia Qualified Code(s): E78.2 - Mixed hyperlipidemia (6) Diabetes type 2, controlled: Qualifiers: Diabetes mellitus complication status: without complication Diabetes mellitus prison insulin use: without oil heaterman use Qualified Code(s): E11.9 - Type 2 diabetes mellitus without complications Plan Patient has s/s of congestive heart failure and new onset left bundle branch block with unstable angina consistent with acute coronary syndrome. She will be placed on bipap and given lasix for diuresis. Echo will be ordered. Nitro drip was recommended for hypertension as well as chest pain. She will be taken to the [facility] emergently at this time for possible PCI. The risk and benefits were discussed in detail with the patient by Dr. Abel. The risk of bleeding, hematoma, vascular injury, myocardial infarction, myocardial perforation, malignant cardiac arrhythmias ,CVA, renal failure and other concomitant complications were explained in detail. Thank you, for allowing us to care for this very pleasant 74 year old female patient. PDMP PDMP Reviewed: Not Reviewed Attestations 2 Medical Necessity Statement*: Stay expected to cross 2 midnights due to above defined care. Coding Level of Care Code Acute Code for [facility] Fwd Diagnoses Chest pain R07.9 New onset left bundle branch block (LBBB) I44.7 Congestive heart failure I50.9 Essential hypertension I10 Hypertension type: essential hypertension Mixed hyperlipidemia E78.2 Hyperlipidemia type: mixed hyperlipidemia Controlled type 2 diabetes mellitus without complication, without long-term current use of insulin E11.9 Diabetes mellitus complication status: without complication Diabetes mellitus prison insulin use: without oil heaterman use
--- NOTE | 2024-06-19 16:43 | P.HPUD_ITS ---
Surgery/Procedure H&P Update DATE OF PROCEDURE: June 19, 2024 DATE H&P PERFORMED: 06/19/24 H&P UPDATE INFORMATION: I have reviewed H&P completed within last 30 days, I have examined patient prior to procedure and No changes to prior documentation PREOP DIAGNOSIS: Acute coronary syndrome/ New onset left bundle branch block PRIMARY INDICATION FOR PROCEDURE: Acute coronary syndrome/ New onset left bundle branch block PLANNED PROCEDURE: Left heart cath with possible percutaneous coronary intervention PATIENT REASSESSED PRIOR TO SEDATION, WITH NO CHANGE NOTED: Yes PHYSICAL EXAM: alert, oriented x 3 and regular rate & rhythm OTHER PERTINENT EXAM FINDINGS: Bilateral crackles AIRWAY EVAL/ANESTHESIA PLAN: normal airway, ASA III, Local Anesthesia, Risks, benefits & alternatives of sedation and/or procedure discussed and Patient agr ees to continue as planned
--- NOTE | 2024-06-19 16:45 | PC.PHAR ---
Pt unable to verify home medications. Reached out to her local and mail order pharmacies for last fill dates and day supply
[2024-06-19 16:51] LABS: Troponin(5th) Baseline 10 ng/L (0-10)
[2024-06-19 17:00] LABS: Alanine Aminotransferase 9 U/L (0-33); Albumin Level 4.5 g/dL (3.5-5.2); Alkaline Phosphatase 60 U/L (35-105); Anion Gap 21.8 (5-19); Aspartate Amino Transferase 14 U/L (0-32); Blood Urea Nitrogen 24 mg/dL (8-23); Calcium 9.7 mg/dL (8.5-10.5); Carbon Dioxide 17 mmol/L (22-29); Chloride 107 mmol/L (98-107); Creatinine Clr Calc Pharmacy 32.3085; Globulin 2.3 g/dL (1.3-4.6); Glucose 207 mg/dL (65-115); NT Pro B Type Natriuretic Pept 5109 pg/mL (0-450); Osmolality Calculated 302 mOsm/kg (285-295); Potassium 4.8 mmol/L (3.5-5.1); Slide Review Slide Review Perform; Sodium 141 mmol/L (136-145); Total Bilirubin 0.2 mg/dL (0.15-1.2); Total Protein 6.8 g/dL (6.6-8.7)
--- NOTE | 2024-06-19 17:52 | PM.PROC ---
Procedure Note: Date of procedure: 06/19/24 Pre-procedure diagnosis: Acute coronary syndrome/ New onset left bundle branch Post-procedure diagnosis: other (Severe proximal to mid LAD stenosis s/p PCI with 1 stent) Procedure: Proximal to mid LAD has severe stenosis s/p successful revascularization with 1 stent. Severely elevated LVEDP. Bipap ICU transfer IV diuretics Dual antiplatelet therapy with aspirin and plavix Performing Provider: Remi Abel Estimated blood loss (mL): 10 Complications: None Condition: critical Disposition: ICU Coding Level of Care Code Acute Code for Eleanor Metz
--- NOTE | 2024-06-19 18:04 | ECG_ITS ---
[facility] Test Date: 2024-06-19 Pat Name: Mariela Bautista Department: Room: ICU02 Gender: Female Ink Grinder: : 1950 Requested By: Niurka Sanford Order Number: [id number] Naina MD: Gail Machado M.D. Measurements Intervals [place] Rate: 84 P: 51 [place]: 140 QRS: -51 QRSD: 180 T: 99 QT: 449 QTc: 532 Interpretive Statements SINUS RHYTHM POSSIBLE LEFT ATRIAL ENLARGEMENT [-0.1mV P-WAVE IN V1/V2] LEFT AXIS DEVIATION [QRS AXIS < -30] LEFT BUNDLE BRANCH BLOCK [120+ ms QRS DURATION, 80+ ms Q/S IN V1/V2, 85+ ms R IN I/aVL/V5/V6] Compared to ECG 06/19/2024 16:00:35 Sinus tachycardia no longer present Electronically Signed On 06-20-2024 21:46:47 CDT by Gail Machado M.D. [email or web address]
[2024-06-19] MEDS: nitroglycerin drip 50 MG/250 ML PREMIX IV (18:32)
--- NOTE | 2024-06-19 19:18 | USCV_ITS ---
Mariela Bautista Age: 74 Gender: F : 1950 Exam Date: 06/19/2024 20:22 Ordering Phys: Erich Tucker MD Technologist: Marques Oconnor Exam Location: [facility] – [place] Indication: chf history of HK, HTN, SOB on BIPAP in ICU-2 s/p cardiac catheterization/ stent placement. BP: 161 / 77 HR: 84 Rhythm: Sinus Technical Quality: Adequate MEASUREMENTS (Male / Female) Normal Values 2D ECHO LV Diastolic Diameter PLAX 5.0 cm 4.2 - 5.9 / 3.9 - 5.3 cm IVS Diastolic Thickness 1.0 cm 0.6 - 1.0 / 0.6 - 0.9 cm IVS Systolic Thickness 1.4 cm LVPW Diastolic Thickness 1.1 cm 0.6 - 1.0 / 0.6 - 0.9 cm LVPW Systolic Thickness 1.3 cm LVOT Diameter 1.7 cm LV Ejection Fraction 2D Teich 34.9 % LV Ejection Fraction MOD 4C 33.5 % LV Ejection Fraction MOD 2C 13.7 % LV Ejection Fraction 2C AL 13.1 % LA Diameter 3.8 cm Aorta at Sinotubular Diameter 2.0 cm IVC Diameter 1.7 cm M-MODE LA Ao Ratio MM 1.5 AV Cusp Separation MM 1.4 cm DOPPLER AV Peak Velocity 114.0 cm/s LVOT Peak Velocity 64.0 cm/s AV Area Cont Eq vti 1.3 cm squared AV Area Cont Eq pk 1.3 cm squared MV Peak Velocity 145.0 cm/s MV Area PHT 12.6 cm squared Mitral E to A Ratio 0.8 TR Peak Velocity 283.0 cm/s TR Peak Gradient 32.0 mmHg TV Peak E Velocity 36.0 cm/s PV Peak Velocity 95.0 cm/s FINDINGS Left Ventricle Severe diffuse hypokinesia of the left ventricle. LV ejection fraction around 25%. (visual). Mildly dilated LV cavity. Right Ventricle Normal right ventricular size and systolic function. Right Atrium The right atrium is normal in size. Left Atrium Mildly increased left atrial size. Mitral Valve Thickened mitral valve. Mild mitral annular calcification. Mild mitral valve regurgitation. Aortic Valve Thickened aortic valve. Trace aortic valve regurgitation. Tricuspid Valve No gross abnormalities no Pulmonic Valve No gross abnormalities noted Pericardium Normal pericardium without effusion. Aorta Normal ascending aorta dimension. IVC Normal inferior vena cava. CONCLUSIONS Severe diffuse hypokinesia of the left ventricle. LV ejection fraction around 25%. (visual). Mildly increased left atrial size. Thickened mitral valve. Mild mitral annular calcification. Mild mitral valve regurgitation. Thickened aortic valve. Trace aortic valve regurgitation. Mildly dilated LV cavity. There is no pericardial effusion. There are no intracardiac masses. No similar previous studies are available for comparison Dr Gail Machaod MD [facility] (Electronically Signed) Final Date: 19 June 2024 22:05 S
--- NOTE | 2024-06-19 19:38 | PM.CONSULT ---
Providers/Reason For Consult Consulting Physician/Specialty*: Cardiology Reason for Consult*: Acute hypoxic respiratory failure Attending Physician: Remi Abel M.D Primary Care Provider: Salvador Foreman MD History of Present Illness History of Present Illness Mariela Bautista is a 74 year old female with past medical history of type 2 diabetes, hypertension, hyperlipidemia, who presents to [facility] for chest pain shortness of breath. Currently patient is on BiPAP, in mild to moderate respiratory distress nasopharynx, intercostal retractions suprasternal retractions, shortness of breath with a few words, on 50% FiO2, but was able to get most of history from her and family at bedside. According patient, she has been having shortness of breath over the last few days, yesterday evening she had chest pain, however she did not seek medical attention, she presented to the emergency room today as she continued to have left-sided chest pain, rating down the left arm with shortness of breath, shortness of breath at rest, no lightheadedness, dizziness, no diaphoresis, no history of smoking, STEMI alert was called from clinic, chest pain improved with nitroglycerin, found to have new onset left bundle branch block, unstable angina, she was given Lasix, placed on BiPAP, taken for coronary angiogram found to have proximal to mid LAD had severe stenosis status post 1 stent, severely elevated LVEDP. She does report a cough, no fevers, no chills, no recent travel, no sick contacts Review of Systems Const: Denies: fever(s) Card: Reports: chest pain Resp: Reports: dyspnea Neuro: Denies: headache(s) Medications/Allergies Home Medications ?Medication ?Instructions ?Recorded ?Confirmed ?Last Taken ?Type pantoprazole 40 mg tablet,delayed See Rx Instructions .Route 01/31/20 06/19/24 Unknown Rx release .COMPLEX #30 tabs blood glucose control, low (True #1 ea 03/12/20 06/19/24 Unknown Rx Metrix Level 1 solution) blood-glucose meter (True Metrix #1 ea 03/12/20 06/19/24 Unknown Rx Glucose Meter) cholecalciferol (vitamin D3) 10 10 mcg PO DAILY 10/20/20 06/19/24 Unknown History mcg (400 unit) capsule blood sugar diagnostic (True #400 strips 09/27/22 06/19/24 Unknown Rx Metrix Glucose Test Strip) lancets 28 gauge (TRUEplus Lancets) #400 ea 09/27/22 06/19/24 Unknown Rx glimepiride 1 mg tablet See Rx Instructions .Route 12/18/23 06/19/24 Unknown Rx .COMPLEX #90 tabs metformin 500 mg tablet 500 mg PO BID 01/05/24 06/19/24 Unknown History evolocumab 140 mg/mL subcutaneous See Rx Instructions .Route 04/04/24 06/19/24 Unknown Rx pen injector (Repatha SureClick) .COMPLEX #6 mL liraglutide 0.6 mg/0.1 mL (18 mg/3 See Rx Instructions .Route 04/04/24 06/19/24 Unknown Rx mL) subcutaneous pen injector .COMPLEX #6 mL (Victoza 3-Jared) fenofibrate nanocrystallized 145 145 mg PO DAILY 06/19/24 06/19/24 Unknown History mg tablet fluoxetine 20 mg capsule 20 mg PO DAILY 06/19/24 06/19/24 Unknown History fluticasone propionate 50 2 spray intranasal DAILY 06/19/24 06/19/24 Unknown History mcg/actuation nasal spray,suspension lisinopril 40 mg tablet 40 mg PO QPM 06/19/24 06/19/24 Unknown History nifedipine 60 mg tablet,extended 120 mg PO DAILY 06/19/24 06/19/24 Unknown History release 24 hr Allergies Allergy/AdvReac Type Severity Reaction Status Date / Time No Known Allergies Allergy Verified 04/03/24 15:01 Current Medications Generic Name Dose Route Start Last Admin Trade Name Freq PRN Reason Stop Dose Admin Nitroglycerin/Dextrose 50 mg in 250 mls @ 0 mls/hr 06/19/24 16:30 06/19/24 19:21 Nitroglycerin Drip IV 20 mcg/min .Q0M JENNIFER 6 mls/hr Titration Protocol Per Protocol PFSH Acute PFSH: Medical History Diarrhea Diabetes Hypertension Surgical History History of tonsillectomy History of back surgery History of colonoscopy (~2016) normal results History of esophagogastroduodenoscopy (EGD) (~04/2019) Nausea and vomiting in adult EGD showed gastritis and that will be treated by PPI therapy and diet modifications, pending ultrasound of the gallbladder. Family History Mother Cancer Father Cancer Family/Other Cancer colon Denies family history of Anesthesia complication Bleeding disorder Social History Smoking and tobacco/nicotine status: never used tobacco/nicotine Second hand smoke exposure: No Alcohol intake: never Substance/Drug Use: never Adopted: No Caregiver/support person: Yes Lives independently: Yes Household members: spouse Housing: House Marital status: Highest education level completed: High School Graduate service: No Current occupational status: retired Current occupational exposures/hazards: No Pets and animals: No Sexually active: No Do you think of yourself as: Straight/Heterosexual Current gender identity: Female Garciela/Mosque: None Special graciela needs: No Agree to transfusion: No Vitals/I&O/Wt Last Vital Signs Temp 98.5 F 06/19/24 18:10 Pulse 83 06/19/24 18:10 Resp 20 H 06/19/24 18:10 BP 161/77 06/19/24 18:10 Pulse Ox 95 06/19/24 18:10 O2 Del Method BiPAP 06/19/24 18:10 FiO2 50 06/19/24 18:10 06/19/24 06/19/24 06/19/24 06:59 14:59 22:59 Intake Total 2.45 / 2.45 Balance 2.45 / 2.45 Weight last 48 hrs Weight 58 kg Weight 58.06 kg Physical Exam Const: COMMON NORMALS: no acute distress and patient oriented x3 Eye: COMMON NORMALS: Equal, round and reactive pupils present and EOMs intact bilaterally PUPIL: Yes Equal, round and reactive pupils present Resp: AUSCULTATION: crackles and wheezes OTHER: On BiPAP, 50%, nasal 40, intercostal retractions, suprasternal retractions, nasal flaring, Cardio: COMMON NORMALS: regular rate, regular rhythm, S1 normal heart sound present and S2 normal heart sound present RATE: regular rate RHYTHM: regular rhythm HEART SOUNDS: S1 normal heart sound present and S2 normal heart sound present GI: COMMON NORMALS: Normal to inspection, nondistended, normoactive bowel sounds present and non-tender Extremity: COMMON NORMALS: no pedal edema Neuro: COMMON NORMALS: patient oriented x3, CN's II-XII intact bilaterally and moves all extremities Psych: COMMON NORMALS: mental status grossly normal Data 06/19/24 16:10 06/19/24 16:10 A&P Assessment and plan (1) New onset left bundle branch block (LBBB): (2) Acute coronary syndrome: (3) ST elevation myocardial infarction (STEMI): (4) Acute hypoxic respiratory failure: (5) Systolic CHF, acute: Plan Acute hypoxic respiratory failure - With evidence of mild to moderate acute respiratory distress, nasal flaring, intercostal retractions suprasternal retractions, short of breath with a few words, on 50% BiPAP - Likely component of systolic CHF exacerbation, ischemic cardiomyopathy - With ACS, new onset left bundle branch block, status post proximal to mid LAD severe stenosis status post revascularization with 1 stent - Plan - Does have a cough, leukocytosis, obtain blood cultures, CRP, Pro-Alcides, lactic acid, will consider antibiotics based on clinical progress - DuoNeb for shortness of breath as needed - Lasix 40 IV twice daily, will consider Lasix drip based on clinical progress - Monitor urine output, monitor creatinine - Continue BiPAP, monitor respiratory status closely - Currently on nitroglycerin drip - Continue aspirin, Plavix, statin -Increased anion gap metabolic acidosis check ketones, - Cardiac echocardiogram ordered - Type 2 diabetes, low-dose sliding scale - Goals of care discussion, with nursing staff and members at bedside had a goals of care discussion, Mariela would like to be a DNR/DNI, confirmed with her multiple times, she voiced understanding, all questions answered - Lovenox for DVT prophylaxis - Protonix for GI prophylaxis PDMP PDMP Reviewed: Not Reviewed Consult Attestations Medical Necessity Statement: Patient requires hospitalization, inpatient, greater than 2 midnights for acute hypoxic respiratory failure, concerns for acute flash pulm edema, STEMI, acute systolic CHF, requiring BiPAP Diagnoses New onset left bundle branch block (LBBB) I44.7 Acute coronary syndrome I24.9 ST elevation myocardial infarction (STEMI) I21.3 Acute hypoxic respiratory failure J96.01 Systolic CHF, acute I50.21
[2024-06-19 20:08] LABS: Lactic Sepsis W/Reflex 1.3 mmol/L (0.5-2.2)
[2024-06-19 20:09] LABS: Procalcitonin 0.05 ng/mL (0-0.5)
[2024-06-19 20:21] LABS: Chol HDL Ratio 3.02 mg/dL (0.0-4.40); Cholesterol 151 mg/dL (0-200); HDL Cholesterol 50 mg/dL (60-100); LDL Cholesterol Calculated 74 mg/dL (50-129); LDL HDL Ratio 1.48 RATIO (0.00-3.22); Triglycerides 133 mg/dL (0-150)
[2024-06-19] MEDS: FUROsemide 10 mg/mL SDV 4mL 40 MG IVP (20:54)
[2024-06-19] MEDS: atorvastatin 40 mg Tablet PO (20:54)
[2024-06-19 21:32] LABS: Estmated Average Glucose 157; Hemoglobin A1C 7.1 % (4.0-6.0)
--- NOTE | 2024-06-19 22:10 | ECG_ITS ---
[facility] [place] [facility] Date: 2024-06-19 Pat Name: Mariela Bautista Department: Room: ICU02 Gender: Female Inhalation Therapist: : 1950 Requested By: Niurka Sanford Order Number: [id number] Naina MD: Gail Machado M.D. Measurements Intervals [place] Rate: 83 P: 27 LA: 160 QRS: -55 QRSD: 174 T: 108 QT: 431 QTc: 509 Interpretive Statements SINUS RHYTHM LEFT AXIS DEVIATION [QRS AXIS < -30] LEFT BUNDLE BRANCH BLOCK [120+ ms QRS DURATION, 80+ ms Q/S IN V1/V2, 85+ ms R IN I/aVL/V5/V6] Compared to ECG 06/19/2024 18:14:58 No significant changes Electronically Signed On 06-20-2024 21:46:29 CDT by Gail Machado M.D. [email or web address]
[2024-06-19 23:26] LABS: Troponin 5 6HR 170.4 ng/L (0-10)
[2024-06-19 23:27] LABS: Troponin 5 6HR Delta 160.4 ng/L (0-12)
[2024-06-20] VITALS (81 sets, daily range): BP systolic 91–159; BP diastolic 48–110; PULSE 72–106; RESP 9–31; TEMP 36.6–36.7; O2SAT 92–99
[2024-06-20 03:47] LABS: Basophils # 0.1 10^3/uL (0.0-0.1); Basophils % 0.7 %; Eosinophils % 0.3 %; Hematocrit 31.4 % (36-47); Lymphocytes # 4.7 10^3/uL (0.8-4.8); Lymphocytes % 32.9 %; Mean Corpuscular HGB Conc 32.2 g/dL (30-55); Mean Corpuscular Hemoglobin 25.6 pg (27-33); Mean Corpuscular Volume 79.7 fl (85-98); Mean Platelet Volume 13.5 fL (7.4-10.4); Monocytes % 6.8 %; Neutrophils # 8.37 10^3/uL (1.8-7.7); Neutrophils % 58.9 %; Nucleated Red Blood Cells % 0 %; Platelet Count 352 10^3/cmm (157-399); Red Blood Count 3.94 10^6/uL (3.85-5.65); Red Cell Distribution Width 14.1 % (12.1-15.1); White Blood Count 14.18 10^3/uL (3.29-11.43)
[2024-06-20 04:11] LABS: Anion Gap 21.5 (5-19); Blood Urea Nitrogen 24 mg/dL (8-23); Calcium 9.5 mg/dL (8.5-10.5); Carbon Dioxide 23 mmol/L (22-29); Chloride 99 mmol/L (98-107); Glucose 159 mg/dL (65-115); Osmolality Calculated 297 mOsm/kg (285-295); Potassium 3.5 mmol/L (3.5-5.1); Sodium 140 mmol/L (136-145)
[2024-06-20 04:21] LABS: Slide Review Slide Review Perform
[2024-06-20 04:31] LABS: NT Pro B Type Natriuretic Pept 18480 pg/mL (0-450)
[2024-06-20 05:41] LABS: Glucose Point of Care 234 mg/dL (70-110)
--- NOTE | 2024-06-20 07:00 | XRR_ITS ---
PROCEDURE INFORMATION: Exam: XR Chest Exam date and time: 06/20/2024 5:31 AM Age: 74 years old Clinical indication: Shortness of breath; Additional info: SOB TECHNIQUE: Imaging protocol: Radiologic exam of the chest. Views: 1 view. COMPARISON: CR XR chest 1V portable [id number] 06/19/2024 4:14 PM FINDINGS: Lungs: Unremarkable. No consolidation. Pleural spaces: Unremarkable. No pleural effusion. No pneumothorax. Heart/Mediastinum: Unremarkable. No cardiomegaly. Bones/joints: Unremarkable. XR/XR chest 1V portable [id number] IMPRESSION: No acute findings.
[2024-06-20 07:31] LABS: Glucose Point of Care 202 mg/dL (70-110)
[2024-06-20] MEDS: FUROsemide 10 mg/mL SDV 4mL 40 MG IVP ×2 (08:16→21:52)
[2024-06-20] MEDS: aspirin 81 mg EC Tablet PO (08:16)
[2024-06-20] MEDS: fluoxetine 20 mg Capsule PO (08:16)
[2024-06-20] MEDS: clopidogrel 75 mg Tablet PO (08:16)
[2024-06-20] MEDS: insulin lispro 100 unit/1 mL SUBCUT ×3 (08:16→17:09)
[2024-06-20] MEDS: fenofibrate 145 mg Tablet PO (08:16)
[2024-06-20 11:22] LABS: Glucose Point of Care 327 mg/dL (70-110)
--- NOTE | 2024-06-20 13:03 | P.PN_ITS ---
<Statement entered by Remi Abel M.D - 06/20/24 23:05> Patient was evaluated and cared for in conjunction with an advanced practice practitioner. I personally examined the patient and reviewed the chart and all pertinent data including imaging, telemetry, and laboratory results. I discussed the patient in detail with the advanced practice practitioner. Please see their note for complete progress note, results and agreed upon plan of care for the patient. GENERAL: Patient is alert and oriented HEART: Regular S1 and S2 LUNGS: Clear to auscultation bilaterally EXTREMITIES: Lower extremities with no edema 1) Acute coronary syndrome 2) Acute congestive heart failure 3) New onset left bundle branch block 4) Diabetes Patient had PCI of proximal LAD performed yesterday. Continue aspirin and plavix Volume status has improved. Continue IV diuresis. Monitor I and Os. Monitor renal function Lifevest ordered. ECHO shows severely reduced LV systolic dysfunction Subjective 2 Subjective: Patient doing well today. She states she can breathe much better. States she has some light chest pressure on the left side of her chest that has improved significantly from yesterday. She states she is able to exert herself without this worsening. She states she feels much better. She has been -4267 L over 24 hours. She received a stent to the LAD yesterday. Creatinine is stable at 1.3. She is currently on the nitro drip. Echo showed EF is 25%. Vitals/I&O/Wt Last Vital Signs Temp 98.1 F 06/20/24 08:30 Pulse 94 06/20/24 11:00 Resp 18 06/20/24 11:00 BP 152/93 06/20/24 11:00 Pulse Ox 97 06/20/24 11:00 O2 Del Method Nasal Cannula 06/20/24 11:00 O2 Flow Rate 2 06/20/24 11:00 FiO2 3 06/20/24 04:45 06/19/24 06/20/24 06/20/24 22:59 06:59 14:59 Intake Total 22.45 / 22.45 360 / 360 Output Total 1150 / 1150 2100 / 3250 1400 / 1400 Balance -1127.55 / -1127.55 -2100 / -3227.55 -1040 / -1040 Weight last 48 hrs Weight 127 lb 13.89 oz Weight 128 lb Physical Exam 2 Narrative: General: Slight respiratory distress noted, slightly dyspnic Muskuloskeletal: Full ROM Respiratory: bilateral lower lobes fine crackles Cardio: No JVD, regular rate, regular rhythm, S1 S2 normal, no murmurs, peripheral pulses 2+ radial palpated on the right GI: Normal to inspection, nondistended Extremities: Full ROM, normal, normal capillary refill, no cyanosis, no edema bilaterally Neuro: Alert and oriented x4, no focal motor deficits Psych: Affect normal Skin: No rashes or lesions noted, no wounds Data 06/20/24 02:22 06/20/24 02:22 Micro: Microbiology 06/19/24 19:43 Blood Culture - Preliminary Blood SPECIMEN COLLECTED 06/19/24 19:40 Blood Culture - Preliminary Blood SPECIMEN COLLECTED A&P Assessment and plan (1) Chest pain: (2) New onset left bundle branch block (LBBB): (3) Congestive heart failure: (4) Hypertension: Qualifiers: Hypertension type: essential hypertension Qualified Code(s): I10 - Essential (primary) hypertension (5) Hyperlipidemia: Qualifiers: Hyperlipidemia type: mixed hyperlipidemia Qualified Code(s): E78.2 - Mixed hyperlipidemia (6) Diabetes type 2, controlled: Qualifiers: Diabetes mellitus fpc insulin use: without fpc use Diabetes mellitus complication status: without complication Qualified Code(s): E11.9 - Type 2 diabetes mellitus without complications Plan Patient is s/p stent to the proximal LAD. She has improved. She will require a few more days of diuresis. I did recommend and discuss life vest with the patient due to her EF being 25%. She agrees with this. This has been ordered. Will go ahead and start beta nilda. Continue to diurese and monitor I & O. Will start Entresto when creatinine stabilizes more. Continue chepe inhibitor. Wean off nitro drip as tolerated. PDMP PDMP Reviewed: Not Reviewed Attestations 2 Medical Necessity Statement*: Patient stay expected to cross two midnights due to above defined care. 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
[2024-06-20] MEDS: insulin regular-human 100 units/1 mL 10 UNIT IVP (13:36)
--- NOTE | 2024-06-20 15:45 | P.PN_ITS ---
Subjective 2 Subjective: Overnight labs and H&P reviewed.Patient states she is symptomatically much better today. Currently on 3 L/min supplemental O2. At baseline does not use any oxygen. Medications: Reviewed: Yes Vitals/I&O/Wt Last Vital Signs Temp 98.1 F 06/20/24 08:30 Pulse 92 06/20/24 15:13 Resp 17 06/20/24 15:13 BP 130/68 06/20/24 15:13 Pulse Ox 96 06/20/24 15:13 O2 Del Method Nasal Cannula 06/20/24 15:13 O2 Flow Rate 2 06/20/24 15:13 FiO2 3 06/20/24 04:45 06/20/24 06/20/24 06/20/24 06:59 14:59 22:59 Intake Total 360 / 360 Output Total 2100 / 3250 1400 / 1400 Balance -2100 / -3227.55 -1040 / -1040 Weight last 48 hrs Weight 58 kg Weight 58.06 kg Physical Exam 2 Narrative: General: No acute distress, AO x3 HEENT: PERRLA, pupils bilaterally equal and reactive, pallors not present Chest: Normal vesicular breath sounds, no added sounds, equal good air entry bilaterally CVS: S1-S2 regular, no murmurs, no tachycardia, no gallops, no rubs Abdomen: Soft, nontender, no organomegaly, bowel sounds present Neuro: No focal deficits, no facial deformity, AO x3, power 5/5 in all limbs Data 06/20/24 02:22 06/20/24 02:22 Micro: Microbiology 06/19/24 19:43 Blood Culture - Preliminary Blood SPECIMEN COLLECTED 06/19/24 19:40 Blood Culture - Preliminary Blood SPECIMEN COLLECTED A&P Assessment and plan (1) New onset left bundle branch block (LBBB): (2) Acute coronary syndrome: (3) ST elevation myocardial infarction (STEMI): (4) Acute hypoxic respiratory failure: (5) Systolic CHF, acute: Plan Acute hypoxic respiratory failure - With evidence of mild to moderate acute respiratory distress, nasal flaring, intercostal retractions suprasternal retractions, short of breath with a few words, on 50% BiPAP - Likely component of systolic CHF exacerbation, ischemic cardiomyopathy - With ACS, new onset left bundle branch block, status post proximal to mid LAD severe stenosis status post revascularization with 1 stent - Plan - Does have a cough, leukocytosis, obtain blood cultures, CRP, Pro-Alcides, lactic acid, will consider antibiotics based on clinical progress - DuoNeb for shortness of breath as needed - Lasix 40 IV twice daily, will consider Lasix drip based on clinical progress - Monitor urine output, monitor creatinine - Continue BiPAP, monitor respiratory status closely - Currently on nitroglycerin drip - Continue aspirin, Plavix, statin -Increased anion gap metabolic acidosis check ketones, - Cardiac echocardiogram ordered - Type 2 diabetes, low-dose sliding scale - Goals of care discussion, with nursing staff and members at bedside had a goals of care discussion, Mariela would like to be a DNR/DNI, confirmed with her multiple times, she voiced understanding, all questions answered - Lovenox for DVT prophylaxis - Protonix for GI prophylaxis June 20, 2024 Patient admitted to the hospital on June 19, 2024 after developing chest pain. EKG showed new onset left bundle branch block. Blood pressure was elevated at 201/102. 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 He is currently having intermittent chest pain for which she is maintained on a nitroglycerin infusion which is being tapered down. Hospitalist service consulted due to acute hypoxic respiratory failure. Patient was requiring BiPAP overnight and until this morning. Likely cause of acute hypoxic respiratory failure is pulmonary edema. Echocardiogram reveals an ejection fraction of 25%. She is currently on diuresis with Lasix 40 mg IV every 12 hours. Urine output nearly 4.6 L. Net -4.2 L. No known history of asthma or COPD. Chest x-ray from yesterday showed diffuse pulmonary edema. No focal consolidation. Patient has mild leukocytosis, no fever negative procalcitonin, unlikely acute infection.No indication of antibiotics at this time. Uncontrolled blood sugar in the 300s, mild anion gap of 21.8. Check HbA1c. She is currently on low-dose insulin sliding scale. Will increase to high-dose sliding scale. Additional 10 units of IV push insulin to be administered now. Patient states she is on Victoza and glimepiride at home, however has been out of Victoza recently due to nonavailability of the medication. PDMP PDMP Reviewed: Not Reviewed Attestations 2 Medical Necessity Statement*: per admitting Coding Level of Care Code Acute Code for [facility] Diagnoses New onset left bundle branch block (LBBB) I44.7 Acute coronary syndrome I24.9 ST elevation myocardial infarction (STEMI) I21.3 Acute hypoxic respiratory failure J96.01 Systolic CHF, acute I50.21
[2024-06-20 16:31] LABS: Glucose Point of Care 182 mg/dL (70-110)
[2024-06-20] MEDS: lisinopril 20 mg Tablet 40 MG PO (17:08)
[2024-06-20] MEDS: carvedilol 6.25 mg Tablet PO (17:09)
[2024-06-20 17:36] LABS: Alanine Aminotransferase 21 U/L (0-33); Albumin Level 4.3 g/dL (3.5-5.2); Alkaline Phosphatase 53 U/L (35-105); Anion Gap 21.7 (5-19); Aspartate Amino Transferase 154 U/L (0-32); Blood Urea Nitrogen 33 mg/dL (8-23); Calcium 9.8 mg/dL (8.5-10.5); Carbon Dioxide 24 mmol/L (22-29); Chloride 98 mmol/L (98-107); Creatinine Clr Calc Pharmacy 25.8345; Globulin 2.9 g/dL (1.3-4.6); Glucose 165 mg/dL (65-115); Osmolality Calculated 301 mOsm/kg (285-295); Potassium 3.7 mmol/L (3.5-5.1); Sodium 140 mmol/L (136-145); Total Bilirubin 0.2 mg/dL (0.15-1.2); Total Protein 7.2 g/dL (6.6-8.7)
[2024-06-20 20:29] LABS: Estmated Average Glucose 154
[2024-06-20] MEDS: atorvastatin 40 mg Tablet PO (21:52)
[2024-06-21] VITALS (23 sets, daily range): BP systolic 91–134; BP diastolic 39–76; PULSE 67–95; RESP 14–20; TEMP 36.6–36.9; O2SAT 88–97
[2024-06-21 04:47] LABS: Basophils # 0.1 10^3/uL (0.0-0.1); Basophils % 0.7 %; Eosinophils # 0.2 10^3/uL (0.0-0.8); Eosinophils % 1.3 %; Lymphocytes # 5.1 10^3/uL (0.8-4.8); Lymphocytes % 45.1 %; Mean Corpuscular HGB Conc 32.3 g/dL (30-55); Mean Corpuscular Hemoglobin 25.9 pg (27-33); Mean Corpuscular Volume 80.3 fl (85-98); Mean Platelet Volume 13.7 fL (7.4-10.4); Monocytes # 0.7 10^3/uL (0.2-0.9); Monocytes % 6.3 %; Neutrophils # 5.18 10^3/uL (1.8-7.7); Neutrophils % 46.2 %; Nucleated Red Blood Cells % 0 %; Platelet Count 328 10^3/cmm (157-399); Red Blood Count 3.86 10^6/uL (3.85-5.65); Red Cell Distribution Width 13.8 % (12.1-15.1); White Blood Count 11.23 10^3/uL (3.29-11.43)
[2024-06-21 05:12] LABS: Anion Gap 22.3 (5-19); Blood Urea Nitrogen 38 mg/dL (8-23); Calcium 9.1 mg/dL (8.5-10.5); Carbon Dioxide 25 mmol/L (22-29); Chloride 99 mmol/L (98-107); Creatinine Clr Calc Pharmacy 20.3957; Glucose 168 mg/dL (65-115); Osmolality Calculated 309 mOsm/kg (285-295); Potassium 3.3 mmol/L (3.5-5.1); Sodium 143 mmol/L (136-145)
[2024-06-21 05:18] LABS: NT Pro B Type Natriuretic Pept 20776 pg/mL (0-450)
[2024-06-21 05:54] LABS: Slide Review Slide Review Perform
[2024-06-21 07:56] LABS: Glucose Point of Care 215 mg/dL (70-110)
[2024-06-21] MEDS: fenofibrate 145 mg Tablet PO (08:27)
[2024-06-21] MEDS: clopidogrel 75 mg Tablet PO (08:27)
[2024-06-21] MEDS: carvedilol 6.25 mg Tablet PO (08:27)
[2024-06-21] MEDS: fluoxetine 20 mg Capsule PO (08:27)
[2024-06-21] MEDS: aspirin 81 mg EC Tablet PO (08:27)
[2024-06-21] MEDS: insulin lispro 100 unit/1 mL SUBCUT ×3 (08:27→17:36)
[2024-06-21] MEDS: FUROsemide 10 mg/mL SDV 4mL 40 MG IVP (08:28)
[2024-06-21] MEDS: potassium chloride ER 20 mEq Tablet 40 MEQ PO (09:23)
--- NOTE | 2024-06-21 10:41 | PC.NURSE ---
Please see paper chart for vitals.
[2024-06-21 11:03] LABS: Glucose Point of Care 378 mg/dL (70-110)
--- NOTE | 2024-06-21 11:16 | P.PN_ITS ---
<Statement entered by Remi Abel M.D - 06/23/24 19:19> Patient was evaluated and cared for in conjunction with an advanced practice practitioner. I personally examined the patient and reviewed the chart and all pertinent data including imaging, telemetry, and laboratory results. I discussed the patient in detail with the advanced practice practitioner. Please see their note for complete progress note, results and agreed upon plan of care for the patient. Patient is doing well. However creatinine trending up. Hold lasix. Monitor renal function. If further increase in creatinine tomorrow, may hydrate her with IV fluids. GENERAL: Patient is alert and oriented HEART: Regular S1 and S2 LUNGS: Clear to auscultation bilaterally EXTREMITIES: Lower extremities with no edema Subjective 2 Subjective: Patient doing well. She is not requiring any oxygen. Blood pressures have been soft. I discussed with patient about the LifeVest and she states she does not want it. She does understand she is at high risk of sudden cardiac . We will hold Lasix for now as she seems euvolemic and her creatinine has had a slight increase at 1.9. Denies any chest pain or shortness of breath. Vitals/I&O/Wt Last Vital Signs Temp 97.8 F 06/21/24 10:52 Pulse 79 06/21/24 10:52 Resp 14 06/21/24 10:52 BP 98/53 06/21/24 10:52 Pulse Ox 91 06/21/24 10:52 O2 Del Method Room Air 06/21/24 10:52 O2 Flow Rate 1 06/21/24 07:44 FiO2 3 06/20/24 04:45 06/20/24 06/21/24 06/21/24 22:59 06:59 14:59 Intake Total 270.6 / 700.5 200 / 200 Output Total 350 / 1750 350 / 2100 Balance -79.4 / -1049.5 -350 / -1399.5 200 / 200 Weight last 48 hrs Weight 127 lb 13.89 oz Weight 128 lb Physical Exam 2 Narrative: General: Slight respiratory distress noted, slightly dyspnic Muskuloskeletal: Full ROM Respiratory: clear throughout Cardio: No JVD, regular rate, regular rhythm, S1 S2 normal, no murmurs, peripheral pulses 2+ radial palpated on the right GI: Normal to inspection, nondistended Extremities: Full ROM, normal, normal capillary refill, no cyanosis, no edema bilaterally Neuro: Alert and oriented x4, no focal motor deficits Psych: Affect normal Skin: right radial puncture site clean, dry, intact, w/o hematoma Data 06/21/24 02:25 06/21/24 02:25 Micro: Microbiology 06/19/24 19:43 Blood Culture - Preliminary Blood NEGATIVE TO DATE 06/19/24 19:40 Blood Culture - Preliminary Blood NEGATIVE TO DATE A&P Assessment and plan (1) Chest pain: (2) New onset left bundle branch block (LBBB): (3) Congestive heart failure: (4) Hypertension: Qualifiers: Hypertension type: essential hypertension Qualified Code(s): I10 - Essential (primary) hypertension (5) Hyperlipidemia: Qualifiers: Hyperlipidemia type: mixed hyperlipidemia Qualified Code(s): E78.2 - Mixed hyperlipidemia (6) Diabetes type 2, controlled: Qualifiers: Diabetes mellitus intermediate card tender insulin use: without intermediate card tender use Diabetes mellitus complication status: without complication Qualified Code(s): E11.9 - Type 2 diabetes mellitus without complications Plan Patient is doing well. Will hold diuretics at this time due to patient had an increase in creatinine at 1.9. Will check BMP in the afternoon. Will decrease Coreg to 3.125 mg twice daily and decrease lisinopril to 20 mg. I have asked the nurse to hold lisinopril if blood pressure less than or equal to 110/60. She does not want the LifeVest at this time. She does understand her risk of sudden cardiac is elevated. PDMP PDMP Reviewed: Not Reviewed Attestations 2 Medical Necessity Statement*: Patient stay expected to cross two midnights due to above defined care. Coding Level of Care Code Acute [facility] Diagnoses Chest pain R07.9 New onset left bundle branch block (LBBB) I44.7 Congestive heart failure I50.9 Essential hypertension I10 Hypertension type: essential hypertension Mixed hyperlipidemia E78.2 Hyperlipidemia type: mixed hyperlipidemia Controlled type 2 diabetes mellitus without complication, without long-term current use of insulin E11.9 Diabetes mellitus intermediate card tender insulin use: without intermediate card tender use Diabetes mellitus complication status: without complication
[2024-06-21 12:22] LABS: Glucose Point of Care 219 mg/dL (70-110)
--- NOTE | 2024-06-21 13:17 | P.PN_ITS ---
Subjective 2 Subjective: Patient's breathing is better. She is currently on room air at the time of this assessment. Medications: Reviewed: Yes Vitals/I&O/Wt Last Vital Signs Temp 97.8 F 06/21/24 10:52 Pulse 95 06/21/24 13:04 Resp 20 H 06/21/24 13:04 BP 129/76 06/21/24 13:04 Pulse Ox 94 06/21/24 13:04 O2 Del Method Room Air 06/21/24 13:04 O2 Flow Rate 1 06/21/24 07:44 FiO2 3 06/20/24 04:45 06/20/24 06/21/24 06/21/24 22:59 06:59 14:59 Intake Total 270.6 / 700.5 200 / 200 Output Total 350 / 1750 350 / 2100 Balance -79.4 / -1049.5 -350 / -1399.5 200 / 200 Weight last 48 hrs Weight 58 kg Weight 58.06 kg Physical Exam 2 Narrative: General: No acute distress, AO x3 HEENT: PERRLA, pupils bilaterally equal and reactive, pallors not present Chest: Normal vesicular breath sounds, no added sounds, equal good air entry bilaterally CVS: S1-S2 regular, no murmurs, no tachycardia, no gallops, no rubs Abdomen: Soft, nontender, no organomegaly, bowel sounds present Neuro: No focal deficits, no facial deformity, AO x3, power 5/5 in all limbs Data 06/21/24 02:25 06/21/24 02:25 Micro: Microbiology 06/19/24 19:43 Blood Culture - Preliminary Blood NEGATIVE TO DATE 06/19/24 19:40 Blood Culture - Preliminary Blood NEGATIVE TO DATE A&P Assessment and plan (1) New onset left bundle branch block (LBBB): (2) Acute coronary syndrome: (3) ST elevation myocardial infarction (STEMI): (4) Acute hypoxic respiratory failure: (5) Systolic CHF, acute: Plan Acute hypoxic respiratory failure - With evidence of mild to moderate acute respiratory distress, nasal flaring, intercostal retractions suprasternal retractions, short of breath with a few words, on 50% BiPAP - Likely component of systolic CHF exacerbation, ischemic cardiomyopathy - With ACS, new onset left bundle branch block, status post proximal to mid LAD severe stenosis status post revascularization with 1 stent - Plan - Does have a cough, leukocytosis, obtain blood cultures, CRP, Pro-Alcides, lactic acid, will consider antibiotics based on clinical progress - DuoNeb for shortness of breath as needed - Lasix 40 IV twice daily, will consider Lasix drip based on clinical progress - Monitor urine output, monitor creatinine - Continue BiPAP, monitor respiratory status closely - Currently on nitroglycerin drip - Continue aspirin, Plavix, statin -Increased anion gap metabolic acidosis check ketones, - Cardiac echocardiogram ordered - Type 2 diabetes, low-dose sliding scale - Goals of care discussion, with nursing staff and members at bedside had a goals of care discussion, Mariela would like to be a DNR/DNI, confirmed with her multiple times, she voiced understanding, all questions answered - Lovenox for DVT prophylaxis - Protonix for GI prophylaxis June 20, 2024 Patient admitted to the hospital on June 19, 2024 after developing chest pain. EKG showed new onset left bundle branch block. Blood pressure was elevated at 201/102. Patient was taken to the [facility] and found to have severe stenosis of the proximal to mid LAD treated with successful revascularization with 1 stent. He is currently having intermittent chest pain for which she is maintained on a nitroglycerin infusion which is being tapered down. Hospitalist service consulted due to acute hypoxic respiratory failure. Patient was requiring BiPAP overnight and until this morning. Likely cause of acute hypoxic respiratory failure is pulmonary edema. Echocardiogram reveals an ejection fraction of 25%. She is currently on diuresis with Lasix 40 mg IV every 12 hours. Urine output nearly 4.6 L. Net -4.2 L. No known history of asthma or COPD. Chest x-ray from yesterday showed diffuse pulmonary edema. No focal consolidation. Patient has mild leukocytosis, no fever negative procalcitonin, unlikely acute infection.No indication of antibiotics at this time. Uncontrolled blood sugar in the 300s, mild anion gap of 21.8. Check HbA1c. She is currently on low-dose insulin sliding scale. Will increase to high-dose sliding scale. Additional 10 units of IV push insulin to be administered now. Patient states she is on Victoza and glimepiride at home, however has been out of Victoza recently due to nonavailability of the medication. June 21, 2024 Symptomatically better today. Saturating 94% on room air. Creatinine up to 1.9 however still with good urine output. Lasix is on hold today. HbA1c at 7.0, no changes to outpatient medications at this time. Increased sliding scale to high-dose regimen yesterday with improved blood sugars today continue with the high-dose sliding scale. PDMP PDMP Reviewed: Not Reviewed Attestations 2 Medical Necessity Statement*: Per admitting Coding Level of Care Code Acute Code for Chg Fwd Diagnoses New onset left bundle branch block (LBBB) I44.7 Acute coronary syndrome I24.9 ST elevation myocardial infarction (STEMI) I21.3 Acute hypoxic respiratory failure J96.01 Systolic CHF, acute I50.21
[2024-06-21 17:05] LABS: Anion Gap 19.2 (5-19); Blood Urea Nitrogen 51 mg/dL (8-23); Calcium 9.4 mg/dL (8.5-10.5); Carbon Dioxide 25 mmol/L (22-29); Chloride 98 mmol/L (98-107); Creatinine Clr Calc Pharmacy 18.4532; Glucose 161 mg/dL (65-115); Osmolality Calculated 303 mOsm/kg (285-295); Potassium 4.2 mmol/L (3.5-5.1); Sodium 138 mmol/L (136-145)
[2024-06-21 17:25] LABS: Glucose Point of Care 180 mg/dL (70-110)
[2024-06-21] MEDS: atorvastatin 40 mg Tablet PO (20:13)
[2024-06-21 20:48] LABS: Glucose Point of Care 307 mg/dL (70-110)
[2024-06-22] VITALS (25 sets, daily range): BP systolic 94–140; BP diastolic 44–78; PULSE 71–91; RESP 14–23; TEMP 36.6; O2SAT 92–97
[2024-06-22 04:54] LABS: Basophils # 0.1 10^3/uL (0.0-0.1); Basophils % 0.9 %; Eosinophils # 0.4 10^3/uL (0.0-0.8); Eosinophils % 4.2 %; Lymphocytes # 4.8 10^3/uL (0.8-4.8); Lymphocytes % 46.1 %; Mean Corpuscular HGB Conc 31.7 g/dL (30-55); Mean Corpuscular Hemoglobin 26.4 pg (27-33); Mean Corpuscular Volume 83.3 fl (85-98); Mean Platelet Volume 13.9 fL (7.4-10.4); Monocytes # 0.8 10^3/uL (0.2-0.9); Monocytes % 7.2 %; Neutrophils % 41.3 %; Nucleated Red Blood Cells % 0 %; Platelet Count 285 10^3/cmm (157-399); Red Blood Count 3.48 10^6/uL (3.85-5.65)
[2024-06-22 05:13] LABS: Anion Gap 19.4 (5-19); Blood Urea Nitrogen 65 mg/dL (8-23); Carbon Dioxide 24 mmol/L (22-29); Chloride 103 mmol/L (98-107); Creatinine Clr Calc Pharmacy 17.6144; Glucose 206 mg/dL (65-115); Osmolality Calculated 319 mOsm/kg (285-295); Potassium 4.4 mmol/L (3.5-5.1); Sodium 142 mmol/L (136-145)
[2024-06-22 05:26] LABS: NT Pro B Type Natriuretic Pept 7764 pg/mL (0-450)
[2024-06-22 07:24] LABS: Glucose Point of Care 226 mg/dL (70-110)
[2024-06-22] MEDS: insulin lispro 100 unit/1 mL SUBCUT ×3 (08:07→17:15)
[2024-06-22] MEDS: clopidogrel 75 mg Tablet PO (08:07)
[2024-06-22] MEDS: aspirin 81 mg EC Tablet PO (08:07)
[2024-06-22] MEDS: carvedilol 3.125 mg Tablet PO ×2 (08:07→17:15)
[2024-06-22] MEDS: fluoxetine 20 mg Capsule PO (08:07)
[2024-06-22] MEDS: fenofibrate 145 mg Tablet PO (08:07)
[2024-06-22 11:02] LABS: Glucose Point of Care 380 mg/dL (70-110)
--- NOTE | 2024-06-22 12:29 | PC.SOCIAL ---
IMM UPDATED IMM dated and initialed, copy given to patient and copy placed in chart.
--- NOTE | 2024-06-22 14:52 | P.PN_ITS ---
Subjective 2 Subjective: Patient doing well. Creatinine has been increasing. Vitals/I&O/Wt Last Vital Signs Temp 97.9 F 06/22/24 05:00 Pulse 85 06/22/24 14:00 Resp 22 H 06/22/24 14:00 BP 134/58 06/22/24 14:00 Pulse Ox 95 06/22/24 14:00 O2 Del Method Room Air 06/22/24 10:00 O2 Flow Rate 1 06/21/24 07:44 FiO2 3 06/20/24 04:45 06/21/24 06/22/24 06/22/24 22:59 06:59 14:59 Intake Total 200 / 500 580 / 580 Output Total 650 / 650 275 / 925 350 / 350 Balance -450 / -150 -275 / -425 230 / 230 Physical Exam 2 Narrative: GENERAL: Patient is alert, awake and oriented x3. [] NECK: No jugular vein distension. [] HEENT: No cyanosis. No icterus. No pallor. [] HEART: Regular S1 and S2. No murmur, rub or gallop. [] LUNGS: Clear to auscultate bilaterally. [] CENTRAL NERVOUS SYSTEM: Grossly nonfocal. [] EXTREMITIES: Lower extremities with no edema Data 06/22/24 03:45 06/22/24 03:45 A&P Assessment and plan (1) Chest pain: (2) New onset left bundle branch block (LBBB): (3) Congestive heart failure: (4) Hypertension: Qualifiers: Hypertension type: essential hypertension Qualified Code(s): I10 - Essential (primary) hypertension (5) Hyperlipidemia: Qualifiers: Hyperlipidemia type: mixed hyperlipidemia Qualified Code(s): E78.2 - Mixed hyperlipidemia (6) Diabetes type 2, controlled: Qualifiers: Diabetes mellitus long lines operator insulin use: without nursing home use Diabetes mellitus complication status: without complication Qualified Code(s): E11.9 - Type 2 diabetes mellitus without complications (7) Acute coronary syndrome: (8) Systolic CHF, acute: Plan Patient's creatinine has been improving. Will give her IV fluid today and recheck creatinine tomorrow. Continue antiplatelet therapy Appreciate hospitalist recommendations. PDMP PDMP Reviewed: Not Reviewed Attestations 2 Medical Necessity Statement*: Care expected to cross 2 midnights. Patient's creatinine has been increasing. Will be hydrated today recheck tomorrow. Coding Level of Care Code Acute Code for Chg Fwd Diagnoses Chest pain R07.9 New onset left bundle branch block (LBBB) I44.7 Congestive heart failure I50.9 Essential hypertension I10 Hypertension type: essential hypertension Mixed hyperlipidemia E78.2 Hyperlipidemia type: mixed hyperlipidemia Controlled type 2 diabetes mellitus without complication, without long-term current use of insulin E11.9 Diabetes mellitus nursing home insulin use: without long lines operator use Diabetes mellitus complication status: without complication Acute coronary syndrome I24.9 Systolic CHF, acute I50.21
[2024-06-22 17:11] LABS: Glucose Point of Care 223 mg/dL (70-110)
[2024-06-22] MEDS: lisinopril 20 mg Tablet PO (17:16)
[2024-06-22] MEDS: sodium chloride 0.9% 1,000 ML 75 ML IV (17:26)
[2024-06-22] MEDS: atorvastatin 40 mg Tablet PO (20:01)
[2024-06-22 20:32] LABS: Glucose Point of Care 300 mg/dL (70-110)
[2024-06-23] VITALS (15 sets, daily range): BP systolic 105–141; BP diastolic 50–90; PULSE 70–85; RESP 15–23; TEMP 36.9; O2SAT 90–98
[2024-06-23 08:04] LABS: Glucose Point of Care 209 mg/dL (70-110)
[2024-06-23] MEDS: fluoxetine 20 mg Capsule PO (08:07)
[2024-06-23] MEDS: clopidogrel 75 mg Tablet PO (08:07)
[2024-06-23] MEDS: fenofibrate 145 mg Tablet PO (08:07)
[2024-06-23] MEDS: insulin lispro 100 unit/1 mL SUBCUT ×2 (08:07→12:31)
[2024-06-23] MEDS: carvedilol 3.125 mg Tablet PO (08:07)
[2024-06-23] MEDS: aspirin 81 mg EC Tablet PO (08:07)
[2024-06-23 09:24] LABS: Anion Gap 17.2 (5-19); Blood Urea Nitrogen 44 mg/dL (8-23); Calcium 8.9 mg/dL (8.5-10.5); Carbon Dioxide 21 mmol/L (22-29); Chloride 106 mmol/L (98-107); Creatinine Clr Calc Pharmacy 27.6798; Glucose 221 mg/dL (65-115); Osmolality Calculated 308 mOsm/kg (285-295); Potassium 4.2 mmol/L (3.5-5.1); Sodium 140 mmol/L (136-145)
--- NOTE | 2024-06-23 10:05 | P.DS_ITS ---
Discharge Providers Date of Admission: 06/19/24 16:36 Date of Discharge: June 23, 2024 Attending Provider at Admission: Remi Abel M.D Attending Provider at Discharge: Remi Abel M.D Primary Care Provider: Salvador Foreman MD Diagnoses at Discharge Discharge Diagnosis (1) Chest pain: Status: Acute (2) New onset left bundle branch block (LBBB): Status: Acute (3) Congestive heart failure: Status: Acute (4) Hypertension: Status: Acute Qualifiers: Hypertension type: essential hypertension Qualified Code(s): I10 - Essential (primary) hypertension (5) Hyperlipidemia: Status: Acute Qualifiers: Hyperlipidemia type: mixed hyperlipidemia Qualified Code(s): E78.2 - Mixed hyperlipidemia (6) Diabetes type 2, controlled: Status: Acute Qualifiers: Diabetes mellitus complication status: without complication Diabetes me llitus intermediate frame tender insulin use: without intermediate frame tender use Qualified Code(s): E11.9 - Type 2 diabetes mellitus without complications (7) Acute coronary syndrome: Details from hospital stay: NSTEMI Status: Acute (8) Systolic CHF, acute: Status: Acute Reason for Visit Reason for Visit: STEMI activation Brief History: 74 year old female who came to the emergency room via EMS as a STEMI alert. She states she started having chest pain last night pressure at the left side of her chest that radiated to her left arm. She had been having shortness of breath on exertion as well. She was in a clinic and EMS was called from there. She states she got nitro and her chest pain improved but she still having some chest pressure. She does have a history of hypercholesterolemia, diabetes, and hypertension. Denies history of heart disease. She is a non-smoker. On exam she is dyspneic with oxygen saturation of 87 percent on nasal cannula. EKG showed new onset left bundle branch block ( no comparison EKGs). Blood pressure is fairly elevated at 201/102. Hospital Course Hospital Course Patient's coronary angiogram showed severe proximal to mid LAD stenosis and underwent successful revascularization with 1 stent. She was put on BiPAP, aggressively diuresed and she recovered quickly. Echo showed severely reduced LV systolic function. Lifevest was recommended but patient refused it as she is DNR. She develped NATACHA and creatinine trended upto 2.2. Lasix was held and IV fluids administered. On day of discharge she was feeling well. On room air, creatinine trended down to 1.4. She was discharged home in a stable condition on DAPT, lisinopril, coreg. We will obtain repeat limited echo in 3 months. Hospitalist team was consulted for medical management. Physical Exam Narrative: GENERAL: Patient is alert, awake and oriented x3. [] NECK: No jugular vein distension. [] HEENT: No cyanosis. No icterus. No pallor. [] HEART: Regular S1 and S2. No murmur, rub or gallop. [] LUNGS: Clear to auscultate bilaterally. [] CENTRAL NERVOUS SYSTEM: Grossly nonfocal. [] EXTREMITIES: Lower extremities with no edema Discharge Data Studies Completed and Pending Completed Studies During Hospitalization Category Date Time Status XR chest 1V portable [id number] Routine Exams 06/20/24 07:00 Completed XR chest 1V portable [id number] Stat Exams 06/19/24 16:04 Completed CV. echo complete* [id number] Routine Ultrasound 06/19/24 19:18 Completed Pending at discharge Category Date Time Status [employer] request for service Stat Exams 06/19/24 16:12 Taken Blood Culture Stat Lab 06/19/24 19:43 Results Radiology Impressions Chest X-Ray 06/20/24 07:00 IMPRESSION: No acute findings. Laboratory Results WBC 10.40 10^3/uL (3.29-11.43) 06/22/24 03:45 RBC 3.48 10^6/uL (3.85-5.65) L 06/22/24 03:45 Hgb 9.20 g/dL (11.27-16.99) L 06/22/24 03:45 Hct 29.0 % (36-47) L 06/22/24 03:45 MCV 83.3 fl (85-98) L 06/22/24 03:45 MCH 26.4 pg (27-33) L 06/22/24 03:45 MCHC 31.7 g/dL (30-55) 06/22/24 03:45 RDW 14.0 % (12.1-15.1) 06/22/24 03:45 Plt Count 285 10^3/cmm (157-399) 06/22/24 03:45 MPV 13.9 fL (7.4-10.4) H 06/22/24 03:45 Neut % (Auto) 41.3 % 06/22/24 03:45 Lymph % (Auto) 46.1 % 06/22/24 03:45 [place] % (Auto) 7.2 % 06/22/24 03:45 Eos % (Auto) 4.2 % 06/22/24 03:45 Baso % (Auto) 0.9 % 06/22/24 03:45 Neut # (Auto) 4.30 10^3/uL (1.8-7.7) 06/22/24 03:45 Lymph # (Auto) 4.8 10^3/uL (0.8-4.8) 06/22/24 03:45 [place] # (Auto) 0.8 10^3/uL (0.2-0.9) 06/22/24 03:45 Eos # (Auto) 0.4 10^3/uL (0.0-0.8) 06/22/24 03:45 Baso # (Auto) 0.1 10^3/uL (0.0-0.1) 06/22/24 03:45 Nucleated RBC % (auto) 0 % 06/22/24 03:45 Nucleated RBCs # 0.0 /100WBC 06/22/24 03:45 PT 12.60 SECONDS (12.1-14.9) 06/19/24 16:10 INR 0.88 (0.8-1.2) 06/19/24 16:10 Sodium 140 mmol/L (136-145) 06/23/24 08:50 Potassium 4.2 mmol/L (3.5-5.1) 06/23/24 08:50 Chloride 106 mmol/L (98-107) 06/23/24 08:50 Carbon Dioxide 21 mmol/L (22-29) L 06/23/24 08:50 Anion Gap 17.2 (5-19) 06/23/24 08:50 BUN 44 mg/dL (8-23) H 06/23/24 08:50 Creatinine 1.4 mg/dL (0.5-0.9) H 06/23/24 08:50 GFR Calculation Not Reportable 06/23/24 08:50 Glucose 221 mg/dL (65-115) H 06/23/24 08:50 POC Glucose 209 mg/dL (70-110) H 06/23/24 07:52 Estimat Average Glucose 154 06/20/24 16:54 Hemoglobin A1c 7.0 % (4.0-6.0) H 06/20/24 16:54 Calculated Osmolality 308 mOsm/kg (285-295) H 06/23/24 08:50 Lactic Acid 1.3 mmol/L (0.5-2.2) 06/19/24 19:40 Calcium 8.9 mg/dL (8.5-10.5) 06/23/24 08:50 Total Bilirubin 0.2 mg/dL (0.15-1.2) 06/20/24 16:54 AST 154 U/L (0-32) H 06/20/24 16:54 ALT 21 U/L (0-33) 06/20/24 16:54 Alkaline Phosphatase 53 U/L (35-105) 06/20/24 16:54 Troponin T Baseline 10 ng/L (0-10) 06/19/24 16:10 Troponin T 120 Minute 20.00 ng/L (0-10) H 06/19/24 18:17 Delta Troponin T 10.00 ABS# (0-10) 06/19/24 18:17 Troponin T Hi Sens 6Hr 170.4 ng/L (0-10) H 06/19/24 22:25 Troponin T Hi Sens 6Hr Delta 160.4 ng/L (0-12) H* 06/19/24 22:25 C-Reactive Protein 14.0 mg/L (0.0-4.9) H 06/19/24 18:17 NT-Pro-B Natriuret Pep 7764 pg/mL (0-450) H 06/22/24 03:45 Total Protein 7.2 g/dL (6.6-8.7) 06/20/24 16:54 Albumin 4.3 g/dL (3.5-5.2) 06/20/24 16:54 Globulin 2.9 g/dL (1.3-4.6) 06/20/24 16:54 Triglycerides 133 mg/dL (0-150) 06/19/24 18:17 Cholesterol 151 mg/dL (0-200) 06/19/24 18:17 LDL Cholesterol, Calc 74 mg/dL (50-129) 06/19/24 18:17 HDL Cholesterol 50 mg/dL (60-100) L 06/19/24 18:17 LDL/HDL Ratio 1.48 RATIO (0.00-3.22) 06/19/24 18:17 Cholesterol/HDL Ratio 3.02 mg/dL (0.0-4.40) 06/19/24 18:17 Procalcitonin 0.05 ng/mL (0-0.5) 06/19/24 18:17 Vitals Last Vital Signs Temp 98.4 F 06/23/24 09:00 Pulse 85 06/23/24 09:00 Resp 16 06/23/24 09:00 BP 127/65 06/23/24 09:00 Pulse Ox 98 06/23/24 09:00 O2 Del Method Room Air 06/23/24 09:00 O2 Flow Rate 1 06/21/24 07:44 FiO2 3 06/20/24 04:45 Discharge Plan Discharge Patient Disposition: Home Condition: Stable Prescriptions: New lisinopril 20 mg Tablet 20 mg PO QPM Qty: 90 3RF clopidogrel 75 mg Tablet 75 mg PO DAILY Qty: 90 3RF aspirin 81 mg Tablet,Delayed Release (Dr/Ec) 81 mg PO DAILY Qty: 90 3RF carvedilol 3.125 mg Tablet 3.125 mg PO BID Qty: 120 2RF furosemide [Lasix] 20 mg tablet 20 mg PO DAILY PRN (Reason: weight gain) Qty: 90 1RF Continued cholecalciferol (vitamin D3) 10 mcg (400 unit) capsule 10 mcg PO DAILY metformin 500 mg tablet 500 mg PO BID liraglutide [Victoza 3-Jared] 0.6 mg/0.1 mL (18 mg/3 mL) pen injector See Rx Instructions .ROUTE .COMPLEX Qty: 6 2RF Dose Instruction: inject 1.8mg (0.3ml) SUBCUTANEOUSLY EVERY DAY Rx Instructions: inject 1.8mg (0.3ml) SUBCUTANEOUSLY EVERY DAY Repatha SureClick 140 mg/mL pen injector See Rx Instructions .ROUTE .COMPLEX Qty: 6 0RF Dose Instruction: INJECT 1 ML UNDER THE SKIN EVERY 2 WEEKS Rx Instructions: INJECT 1 ML UNDER THE SKIN EVERY 2 WEEKS pantoprazole 40 mg tablet,delayed release (DR/EC) See Rx Instructions .ROUTE .COMPLEX Qty: 30 2RF Dose Instruction: TAKE 1 TABLET BY MOUTH DAILY Rx Instructions: TAKE 1 TABLET BY MOUTH DAILY (DME) blood-glucose meter [True Metrix Glucose Meter] [facility] [place] See Rx Instructions .ROUTE .MEDSUPPLY Qty: 1 0RF Rx Instructions: As directed (DME) True Metrix Level 1 Solution See Rx Instructions .ROUTE .MEDSUPPLY Qty: 1 3RF Rx Instructions: As directed (DME) True Metrix Glucose Test Strip Strip See Rx Instructions .ROUTE .COMPLEX Qty: 400 0RF Dose Instruction: USE DIRECTED Rx Instructions: USE DIRECTED (DME) lancets [TRUEplus Lancets] 28 gauge [facility] [place] See Rx Instructions .ROUTE .COMPLEX Qty: 400 0RF Dose Instruction: USE DIRECTED Rx Instructions: USE DIRECTED glimepiride 1 mg tablet See Rx Instructions .ROUTE .COMPLEX Qty: 90 3RF Dose Instruction: TAKE 1 TABLET DAILY NEEDED FOR CONTROL BLOOD SUGAR Rx Instructions: TAKE 1 TABLET DAILY NEEDED FOR CONTROL BLOOD SUGAR fluoxetine 20 mg capsule 20 mg PO DAILY fluticasone propionate 50 mcg/actuation spray,suspension 2 spray INTRANASAL DAILY fenofibrate nanocrystallized 145 mg tablet 145 mg PO DAILY Discontinued nifedipine 60 mg tablet extended release 24hr 120 mg PO DAILY lisinopril 40 mg tablet 40 mg PO QPM Discharge Orders: Discharge Order (Routine); Ordered 06/23/24 Ordered By: Remi Abel Referrals: Salvador Foreman MD [Primary Care Provider] - Ramandeep Freire FNP [Nurse Practitioner] - 07/03/24 1:30 pm Discharge Diet: Cardiac, Diabetic and Low Salt Discharge Activity: Increase activity as tolerated Patient Instructions: Furosemide (By mouth) (Lasix), Aspirin (By mouth) (Faye Extra Strength, Faye Aspirin Children[facility],..., Carvedilol (By mouth) (Coreg, Coreg CR, Hypertenevide-12.5), Clopidogrel (By mouth) (Plavix), Lisinopril/Hydrochlorothiazide (By mouth) (Prinzide, Zestoretic), Heart Attack (DC), Heart Failure (DC), Coronary Angioplasty (DC), Heart Healthy Diet (DC), H eart Catheterization (DC), Coronary Intravascular Stent Placement (DC), CHF Stoplight, Chest Pain Stoplight, Opioid Safety, Post Angiogram Home Care Instructions, Post Heart Attack Stoplight Activity Restrictions/Additional Instructions: Please weigh yourself daily and if there is a weight gain of 1-2 pounds, take lasix. Discharge Attestations Time Spent in Discharge Care*: less than 30 min Quality Metrics Clinical Quality Measures [ Acute Myocardial Infaction { Clinical Trial Participant: No; Contraindication to aspirin: None; Aspirin prescribed; Contraindication to statin: None; Statin prescribed; Contraindication to PCI: None; PCI performed;}] Coding Level of Care Code Acute Code for [facility] Fwd Diagnoses Chest pain R07.9 New onset left bundle branch block (LBBB) I44.7 Congestive heart failure I50.9 Essential hypertension I10 Hypertension type: essential hypertension Mixed hyperlipidemia E78.2 Hyperlipidemia type: mixed hyperlipidemia Controlled type 2 diabetes mellitus without complication, without long-term current use of insulin E11.9 Diabetes mellitus complication status: without complication Diabetes mellitus intermediate frame tender insulin use: without intermediate frame tender use Acute coronary syndrome I24.9 Systolic CHF, acute I50.21
[2024-06-23 11:32] LABS: Glucose Point of Care 205 mg/dL (70-110)
== END 2024-06-23 12:40 | disposition home or self-care (01) | DRG 321 ==
LOC: ER 16:16 → CCL 16:29 → CSU 16:37 → ICU 17:19
PROVIDERS: Family Medicine; Nurse Practitioner Family; Student in an Organized Health Care Education/Training Program; Admitting Provider Internal Medicine; Emergency Provider Emergency Medicine; PCP Family Medicine; Visit Provider Internal Medicine
PROC: 027034Z Dilation of Coronary Artery, One Artery with Drug-eluting Intraluminal Device, Percutaneous Approach (ICD-10-PCS; principal; 2024-06-19 16:30)
PROC: 027034Z Dilation of Coronary Artery, One Artery with Drug-eluting Intraluminal Device, Percutaneous Approach (ICD-10-PCS; 2024-06-19 16:30)
DX: I21.3 ST elevation (STEMI) myocardial infarction of unspecified site (principal); I50.21 Acute systolic (congestive) heart failure; J96.01 Acute respiratory failure with hypoxia; E11.9 Type 2 diabetes mellitus without complications; I25.110 Atherosclerotic heart disease of native coronary artery with unstable angina pectoris; Z79.899 Other long term (current) drug therapy; Z79.84 Long term (current) use of oral hypoglycemic drugs; Z79.51 Long term (current) use of inhaled steroids; Z79.85 Long-term (current) use of injectable non-insulin antidiabetic drugs; I44.7 Left bundle-branch block, unspecified; I11.0 Hypertensive heart disease with heart failure; E78.2 Mixed hyperlipidemia
CPT/HCPCS: 36415; 36416; 71045; 80048; 80053; 80061; 82962; 83036; 83605; 83880; 84145; 84484; 85025; 85347; 85610; 86140; 87040; 92921; 92978; 93005; 93306; 93458; 94660; 96372; 96374; 96375; 96376; 99152; 99153; 99291; C1725; C1753; C1769; C1874; C1887; C1894; C9600; J0360; J1644; J1815; J1938; J1940; J2250; J3010; J3490; J7030; J9999; Q9967

== ENCOUNTER → 2024-07-03 12:31 | Outpatient (BNVA) | payer MEDICARE, SELFPAY | PROVIDERS: PCP Family Medicine; Visit Provider Nurse Practitioner Family | DX: I25.10 Atherosclerotic heart disease of native coronary artery without angina pectoris (principal); E78.2 Mixed hyperlipidemia; I44.7 Left bundle-branch block, unspecified; I11.0 Hypertensive heart disease with heart failure; I50.20 Unspecified systolic (congestive) heart failure; K21.9 Gastro-esophageal reflux disease without esophagitis; I25.2 Old myocardial infarction | CPT/HCPCS: 99214 ==

== ENCOUNTER 2024-07-11 07:50 | Outpatient (CLI) | payer MEDICARE, SELFPAY ==
--- NOTE | 2024-07-11 07:56 | MM_ITS ---
WS: [id number] BILATERAL SCREENING DIGITAL TOMOSYNTHESIS MAMMOGRAM WITH CAD HISTORY: SCREENING COMPARISON: 06/20/2023, 06/15/2022 Bilateral CC and MLO views with tomosynthesis and synthetic mammography submitted. Computer aided detection analyzed. Breast composition: The breasts are almost entirely fatty. No suspicious masses, microcalcifications or architectural distortion. MM/MM scr BI tomosynthesis [id number] IMPRESSION: BI-RADS: 1 - Negative. FOLLOW UP: 1 Year Follow-up
== END 2024-07-11 07:51 | disposition home or self-care (01) ==
LOC: RAD 07:53
PROVIDERS: PCP Family Medicine; Visit Provider Family Medicine
DX: Z12.31 Encounter for screening mammogram for malignant neoplasm of breast (principal); R92.313 Mammographic fatty tissue density, bilateral breasts
CPT/HCPCS: 77063; 77067

== ENCOUNTER → 2024-09-04 14:26 | Outpatient (BNVA) | payer MEDICARE, SELFPAY | PROVIDERS: PCP Family Medicine; Visit Provider Internal Medicine | DX: I25.10 Atherosclerotic heart disease of native coronary artery without angina pectoris (principal); I11.0 Hypertensive heart disease with heart failure; I50.21 Acute systolic (congestive) heart failure; E78.2 Mixed hyperlipidemia; I44.7 Left bundle-branch block, unspecified | CPT/HCPCS: 99214 ==

== ENCOUNTER 2024-10-04 06:56 | Outpatient (CLI) | payer MEDICARE, SELFPAY ==
--- NOTE | 2024-10-04 07:15 | USCV_ITS ---
Mariela Bautista Age: 74 Gender: F : 1950 Exam Date: 10/04/2024 07:25 Ordering Phys: Ramandeep Freire Technologist: Exam Location: [facility] [place] Indication: ef BP: 120 / 70 HR: Rhythm: Sinus Technical Quality: Adequate MEASUREMENTS (Male / Female) Normal Values 2D ECHO LV Diastolic Diameter PLAX 5.0 cm 4.2 - 5.9 / 3.9 - 5.3 cm IVS Diastolic Thickness 1.0 cm 0.6 - 1.0 / 0.6 - 0.9 cm IVS Systolic Thickness 1.6 cm LVPW Diastolic Thickness 1.2 cm 0.6 - 1.0 / 0.6 - 0.9 cm LVPW Systolic Thickness 1.6 cm LVOT Diameter 2.1 cm LV Ejection Fraction 2D Teich 39.3 % LV Ejection Fraction MOD 4C 32.5 % LV Ejection Fraction MOD 2C 40.9 % LV Ejection Fraction 2C AL 42.7 % LA Diameter 3.4 cm RA Systolic Volume 4C AL 24.1 ml RA Systolic Volume 4C MOD 23.9 ml Aorta at Sinotubular Diameter 2.6 cm IVC Diameter 1.8 cm M-MODE LA Ao Ratio MM 1.1 AV Cusp Separation MM 2.0 cm FINDINGS Left Ventricle Moderately increased left ventricular cavity size. Severely decreased left ventricular systolic function. Left ventricular ejection fraction is estimated at 25-30 %. There appeared to be anterior septal and apical wall akinesis with lateral and inferior wall severe hypokinesis suggestive of ischemic heart disease perhaps multivessel disease. There is apical echogenic mass seen in multiple views suspicious for apical thrombus. We recommend repeating exam with conreast to rule out apical wall thrombus. Right Ventricle Right Atrium Left Atrium Mitral Valve Aortic Valve Tricuspid Valve Pulmonic Valve Pericardium Aorta IVC CONCLUSIONS Moderately increased left ventricular cavity size. Severely decreased left ventricular systolic function. Left ventricular ejection fraction is estimated at 25-30 %. There appeared to be anterior septal and apical wall akinesis with lateral and inferior wall severe hypokinesis suggestive of ischemic heart disease perhaps multivessel disease. There is apical echogenic mass seen in multiple views suspicthere is no pericardial effusion. ious for apical thrombus. We recommend repeating exam with conreast to rule out apical wall thrombus. Right atrial pressure is around 5 mm of mercury. Cayden Butler MD (Electronically Signed) Final Date: 04 October 2024 13:35 S
== END 2024-10-04 06:57 | disposition home or self-care (01) ==
LOC: RAD 06:56
PROVIDERS: PCP Family Medicine; Visit Provider Nurse Practitioner Family
DX: I50.20 Unspecified systolic (congestive) heart failure (principal); I51.7 Cardiomegaly; R94.39 Abnormal result of other cardiovascular function study; E11.9 Type 2 diabetes mellitus without complications; E78.2 Mixed hyperlipidemia; M85.80 Other specified disorders of bone density and structure, unspecified site
CPT/HCPCS: 93308; 99214

== ENCOUNTER 2024-10-05 07:17 | Outpatient (CLI) | payer MEDICARE, SELFPAY ==
[2024-10-05 07:39] LABS: Hematocrit 29.9 % (36-47); Hemoglobin 9.40 g/dL (11.27-16.99); Mean Corpuscular HGB Conc 31.4 g/dL (30-55); Mean Corpuscular Hemoglobin 25.0 pg (27-33); Mean Corpuscular Volume 79.5 fl (85-98); Nucleated Red Blood Cells % 0 %; Platelet Count 319 10^3/cmm (157-399); Red Blood Count 3.76 10^6/uL (3.85-5.65); White Blood Count 9.52 10^3/uL (3.29-11.43)
[2024-10-05 07:56] LABS: Anion Gap 18.1 (5-19); Blood Urea Nitrogen 47 mg/dL (8-23); Calcium 9.3 mg/dL (8.5-10.5); Carbon Dioxide 24 mmol/L (22-29); Chloride 101 mmol/L (98-107); Glucose 133 mg/dL (65-115); Osmolality Calculated 302 mOsm/kg (285-295); Potassium 4.1 mmol/L (3.5-5.1); Sodium 139 mmol/L (136-145)
--- NOTE | 2024-10-05 14:15 | USCV_ITS ---
Mariela Bautista Age: 74 Gender: F : 1950 Exam Date: 10/05/2024 14:29 Ordering Phys: Tasha Tierney NP Technologist: Nahid Mahmood Exam Location: [facility] [place] Indication: possible apical thrombus BP: 120 / 70 HR: 82 Rhythm: Sinus Technical Quality: Adequate MEASUREMENTS (Male / Female) Normal Values 2D ECHO LV Diastolic Diameter PLAX 5.5 cm 4.2 - 5.9 / 3.9 - 5.3 cm IVS Diastolic Thickness 1.1 cm 0.6 - 1.0 / 0.6 - 0.9 cm IVS Systolic Thickness 1.1 cm LVPW Diastolic Thickness 0.9 cm 0.6 - 1.0 / 0.6 - 0.9 cm LVPW Systolic Thickness 1.4 cm LVOT Diameter 2.0 cm LV Ejection Fraction 2D Teich 31.5 % LV Ejection Fraction MOD 4C 22.5 % LV Ejection Fraction MOD 2C 24.3 % LV Ejection Fraction 2C AL 25.9 % LA Diameter 3.3 cm RA Systolic Volume 4C AL 23.1 ml RA Systolic Volume 4C MOD 21.8 ml LA Sys Volume AL 43.9 cm cubed LA Sys Volume Index AL 29.0 cm cubed/m squared Aorta at Sinotubular Diameter 2.0 cm IVC Diameter 1.4 cm M-MODE LA Ao Ratio MM 1.2 AV Cusp Separation MM 1.3 cm DOPPLER AV Peak Velocity 130.0 cm/s LVOT Peak Velocity 46.0 cm/s AV Area Cont Eq vti 1.4 cm squared AV Area Cont Eq pk 1.1 cm squared MV Peak Velocity 159.0 cm/s MV Area PHT 9.6 cm squared Mitral E to A Ratio 0.5 TV Peak Velocity 275.0 cm/s TR Peak Velocity 340.0 cm/s TR Peak Gradient 46.2 mmHg TR Mean Velocity 259.0 cm/s TR Mean Gradient 29.1 mmHg TR Velocity Time Integral 114.9 cm PV Peak Velocity 93.0 cm/s RV Ejection Time 0.2 s FINDINGS Left Ventricle Moderately increased left ventricular cavity size. Severely decreased left ventricular systolic function. Left ventricular ejection fraction is estimated at 25 %. There is anterior , septal and apical wall akineis.Grade I/IV diastolic dysfunction (abnormal relaxation filling pattern), normal to mildly elevated filling pressures. Right Ventricle The right ventricle is normal in size and function. Right Atrium The right atrium is normal in size. Left Atrium Moderately increased left atrial size. Mitral Valve Mildly thickened mitral valve. No mitral valve stenosis. Moderate mitral valve regurgitation. Aortic Valve Moderate aortic valve calcification. No aortic valve stenosis. Mild aortic valve regurgitation. Tricuspid Valve Moderate tricuspid valve regurgitation. Pulmonic Valve Trace pulmonary valve regurgitation. Pericardium Normal pericardium without effusion. Aorta Normal ascending aorta dimension. IVC The inferior vena cava appears normal. CONCLUSIONS Moderately increased left ventricular cavity size. Severely decreased left ventricular systolic function. Left ventricular ejection fraction is estimated at 25 %. There is anterior , septal and apical wall akineis.Grade I/IV diastolic dysfunction (abnormal relaxation filling pattern), normal to mildly elevated filling pressures. Mildly thickened mitral valve. No mitral valve stenosis. Moderate mitral valve regurgitation. Moderate aortic valve calcification. No aortic valve stenosis. Mild aortic valve regurgitation. Moderate tricuspid valve regurgitation. There is no pericardial effusion. Right atrial pressure is around 5 mm of mercury. Cayden Butler MD (Electronically Signed) Final Date: 06 October 2024 18:47 S
[2024-10-05] MEDS: perflutren protein-a microsphr 0.22 mg/mL SDV 3 mL IV (15:45)
== END 2024-10-05 07:18 | disposition home or self-care (01) ==
PROVIDERS: PCP Family Medicine; Visit Provider Nurse Practitioner Family
DX: I10 Essential (primary) hypertension (principal); I51.3 Intracardiac thrombosis, not elsewhere classified; I37.1 Nonrheumatic pulmonary valve insufficiency; I34.0 Nonrheumatic mitral (valve) insufficiency; I36.1 Nonrheumatic tricuspid (valve) insufficiency; I35.1 Nonrheumatic aortic (valve) insufficiency
CPT/HCPCS: 36415; 80048; 85025; C8929